=== PATIENT | female | born 1960 | race African-American/Black ===

== ENCOUNTER 2018-11-13 20:59 | Inpatient (IN) | payer MEDICARE, OTHER ==
[~2018-11-13] VITALS: Ht 172.7 cm; Wt 40.8 kg
[~2018-11-13 20:59] MED LIST: NORCO 5-325 TA1 EACH ORAL
[2018-11-13] MEDS ORDERED: Solu-MEDROL 125mg Inj IVP ONE (21:15)
--- NOTE | 2018-11-13 21:22 | Emergency Room Report ---
History of Present Illness General Chief Complaint: Dyspnea/Respdistress Source: Family Member, EMS, Caregiver Present Illness HPI Acute resp distress after eating apple sauce. She has not been eating well for at least a week. She is been having difficulty swallowing. She apparently had no respiratory distress until this episode. The patient is unable to state whether she has pain at this time. The last few days she has complained about increased pain in the areas of metastasis. The pain is been controlled well with tramadol. This is been crushed and the patient apparently has tolerated oral intake marginally well. There is been constipation. The patient was in acute respiratory distress when the paramedics arrived. CPAP in field with albuterol. CPAP and albuterol helped the patient. However she still has respiratory distress. Had PICC for chemo. Now d/c. Chemotherapy was being given for stage IV metastatic breast cancer. Patient is in hospice and DNR DNI The patient is blind. Allergies: Coded Allergies: No Known Allergies (Unverified , 01/28/16) Patient History Limited by: medical condition Past Medical History: see triage record Social History Narrative Patient in hospice Last Menstrual Period: UNK Reviewed Nursing Documentation: PMH: Agreed; PSxH: Agreed Nursing Documentation-PMH Past Medical History: No History, Except For Hx Hypertension: Yes Hx Asthma: Yes Hx Cerebrovascular Accident: Yes - right breast cancer stage 4 Review of Systems All Other Systems: limited Physical Exam Vital Signs Date Time Temp Pulse Resp B/P (MAP) Pulse Ox O2 Delivery O2 Flow Rate FiO2 11/13/18 20:52 140 15 155/77 100 Bi-pap Sp02 EP Interpretation: reviewed, normal General Appearance: severe distress, thin, Chronically Ill Head: normocephalic, atraumatic Eyes: bilateral eye other - Random eye motions ENT: dry mucus membranes Neck: supple, no meningismus Respiratory: respiratory distress, accessory muscle use, rales - Right-sided, wheezing, expiration, other - See skin Cardiovascular #1: normal peripheral pulses, no murmur, tachycardia Cardiovascular #2: 2+ radial (R) Gastrointestinal: soft, decreased bowel sounds Musculoskeletal: no calf tenderness Neurologic: DTRs symmetric, sensory intact, motor weakness - Diffuse, other - occasional monoclonal jerks Psychiatric: depressed affect, anxious Skin: other - Exophytic lesions anterior chest Procedures Critical Care Time Critical Care Time Total Critical Care Time: 120 min bedside evaluation and treatment excludes procedures (EKG). Reason for critical care: Respiratory distress, determination of level of care, hypernatremia, hypokalemia, BiPAP, aspiration pneumonia, hypocalcemia, hypomagnesemia, end-stage breast cancer Possible complications: hypotension, hypertension, MN, shock, arrhythmias, metabolic acidosis, end organ damage, respiratory failure. Interventions: BiPAP, antibiotics, fluid resuscitation, multiple evaluations for respiratory status, electrolyte correction, Course: Hospice patient presents with respiratory distress. BiPAP begun and Solu-Medrol given. Fluid resuscitation begun. Found electrolyte abnormalities. Findings discussed with family -history and CODE STATUS reviewed. Potassium, calcium and magnesium ordered. Improved respiratory status and removal of BiPAP. Apnea monitor alarming. Bedside evaluation with application of CO2 monitor. Discussed findings with family and level of care. Attempting to arrange medical bed but unable due to need for electrolyte replacement. Discussed with admitting physician. CODE STATUS ordered. Consultations: nursing staff, EMS, family, RT, admitting MD Performed by: Dr. Dia Tolerated well condition = critical Medical Decision Making Diagnostic Impression: Primary Impression: Respiratory distress Additional Impressions: Hypokalemia Hypocalcemia Aspiration pneumonia Qualified Codes: J69.0 - Pneumonitis due to inhalation of food and vomit Hypomagnesemia Hypernatremia Metastatic breast cancer Metabolic acidosis ER Course Patient presents with respiratory distress with wheezes. Differential includes aspiration, exacerbation of asthma, acute myocardial infarction, pulmonary embolus amongst others. She is improved with C Pap and albuterol. Evaluation will be with EKG, chest x-ray and labs. The patient is a DO NOT RESUSCITATE. BiPAP will be continued at the moment. EKG sinus tachycardia without injury. Chest x-ray right lower lobe infiltrate. Labs with normal white count, slight anemia. Chemistry remarkable for high sodium, low potassium, extremely low calcium and magnesium. RLL infiltrate. Antibiotics ordered. Patient with hypocalcemia, hypokalemia, hypomagnesemia, Improved respiratory and heart rate - attempt vent mask 22:50. Discussed feeding tubes with family who are against. Taken off of BIPAP. Sats good. Apnea monitor alarm. Resps by sc 12-14. CO2 monitor 41-45. Discussed findings with family. Telemetry beds available. Attempting to arrange for medical bed. This is not possible due to calcium infusion. Improved mentation - talking. Less tachycardic. Family concerned about pain. Morphine ordered along with oral swabs. Laboratory Tests Test 11/13/18 21:05 White Blood Count 6.2 K/UL (4.8-10.8) Red Blood Count 3.95 M/UL (4.20-5.40) L Hemoglobin 12.1 G/DL (12.0-16.0) Hematocrit 38.5 % (37.0-47.0) Mean Corpuscular Volume 98 FL (80-99) Mean Corpuscular Hemoglobin 30.5 PG (27.0-31.0) Mean Corpuscular Hemoglobin Concent 31.3 G/DL (32.0-36.0) L Red Cell Distribution Width 13.3 % (11.6-14.8) Platelet Count 237 K/UL (150-450) Mean Platelet Volume 5.1 FL (6.5-10.1) L Neutrophils (%) (Auto) 77.4 % (45.0-75.0) H Lymphocytes (%) (Auto) 11.0 % (20.0-45.0) L Monocytes (%) (Auto) 10.3 % (1.0-10.0) H Eosinophils (%) (Auto) 0.0 % (0.0-3.0) Basophils (%) (Auto) 1.3 % (0.0-2.0) Prothrombin Time 10.7 SEC (9.30-11.50) Prothrombin Time INR 1.0 (0.9-1.1) PTT 29 SEC (23-33) Sodium Level 149 MMOL/L (136-145) H Potassium Level 2.0 MMOL/L (3.5-5.1) *L Chloride Level 117 MMOL/L (98-107) H Carbon Dioxide Level 19 MMOL/L (21-32) L Anion Gap 12 mmol/L (5-15) Blood Urea Nitrogen 7 mg/dL (7-18) Creatinine 0.5 MG/DL (0.55-1.30) L Estimate Glomerular Filtration Rate > 60 mL/min (>60) Glucose Level 78 MG/DL (74-106) Lactic Acid Level 4.70 mmol/L (0.4-2.0) H Calcium Level < 5.0 MG/DL (8.5-10.1) *L Magnesium Level 0.9 MG/DL (1.8-2.4) *L Total Bilirubin 0.2 MG/DL (0.2-1.0) Aspartate Amino Transferase (AST) 35 U/L (15-37) Alanine Aminotransferase (ALT) 32 U/L (12-78) Alkaline Phosphatase 84 U/L (46-116) Total Creatine Kinase 33 U/L (26-308) Troponin I 0.005 ng/mL (0.000-0.056) Pro-B-Type Natriuretic Peptide 58 pg/mL (0-125) Total Protein 3.3 G/DL (6.4-8.2) L Albumin 1.3 G/DL (3.4-5.0) L Globulin 2.0 g/dL Albumin/Globulin Ratio 0.6 (1.0-2.7) L Microbiology Date/Time Source Procedure Growth Status 11/13/18 21:40 Nasal Nares Influenza Types A,B Antigen (DAYSI) - Final Complete EKG Diagnostic Results Rate: tachycardiac Rhythm: other ST Segments: no acute changes Rhythm Strip Diag. Results EP Interpretation: yes Rhythm: no PVC's, no ectopy, other - Sinus tachycardia Chest X-Ray Diagnostic Results Chest X-Ray Diagnostic Results : Chest X-Ray Ordered: Yes # of Views/Limited/Complete: 1 View Indication: Shortness of Breath EP Interpretation: Yes Interpretation: no effusion, no pneumothorax, other - RLL infiltrate Impression: Other Electronically Signed by: Electronically signed by Isaac Dia MD Last Vital Signs Date Time Temp Pulse Resp B/P (MAP) Pulse Ox O2 Delivery O2 Flow Rate FiO2 11/13/18 22:00 112 21 107/44 100 35 11/13/18 20:55 Facial Status: improved Disposition: ADMITTED INPATIENT Condition: Critical Isaac Dia MD Nov 13, 2018 21:22
--- NOTE | 2018-11-13 21:30 | NUR ---
ED Nurse Note: RECIEVED PT BIBA FROM HOME WITH C/O RESPIRATORY DISTRESS, PT IS HOPSPICE PT WITH STAGE 4 BREAST CANCER, PT RIGHT BREAST WAS REMOVED AND HAS SPREADING OVER ENTIRE CHEST WITH BLISTER LIKE LESIONS AND WOUNDS, SOME OPEN AND DRAINING, PT IS LEGALLY BLIND AND MENTALLY DELAYED, PT SISTER AND MOBILE HEALTH VEHICLE OPERATOR AT BEDSIDE, SISTER IS VERY ANXIOUS, PT IMMEDIATELY PLACED ON CPAP, O2 SAT=97%, PT WITH SOB NOTED, WILL RESUME CARE ORDERED AND CONTINUE TO CLOSELY MONITOR, FAMILY STATES PT IS NOT DNR BUT IS ON HOSPICE, MD AT BEDSIDE SPEAKING WITH FAMILY ABOUT ISSUE.
[2018-11-13 22:00] VITALS: BP 107/44
[2018-11-13 22:01] LABS: BASOPHILS % (AUTO) 1.3 % (0.0-2.0); HEMATOCRIT 38.5 % (37.0-47.0); HEMOGLOBIN 12.1 G/DL (12.0-16.0); MEAN CORPUSCULAR VOLUME 98 FL (80-99); MONOCYTES % (AUTO) 10.3 % (1.0-10.0); NEUTROPHILS % (AUTO) 77.4 % (45.0-75.0); PLATELET COUNT 237 K/UL (150-450); RED BLOOD COUNT 3.95 M/UL (4.20-5.40); RED CELL DISTRIBUTION WIDTH 13.3 % (11.6-14.8); WHITE BLOOD COUNT 6.2 K/UL (4.8-10.8)
[2018-11-13 22:14] LABS: ALANINE AMINOTRANSFERASE 32 U/L (12-78); ALBUMIN 1.3 G/DL (3.4-5.0); ALBUMIN/GLOBULIN RATIO 0.6 (1.0-2.7); ALKALINE PHOSPHATASE 84 U/L (46-116); ANION GAP 12 mmol/L (5-15); ASPARTATE AMINO TRANSFERASE 35 U/L (15-37); BILIRUBIN,TOTAL 0.2 MG/DL (0.2-1.0); BLOOD UREA NITROGEN 7 mg/dL (7-18); CARBON DIOXIDE 19 MMOL/L (21-32); CHLORIDE 117 MMOL/L (98-107); CREATINE KINASE 33 U/L (26-308); CREATININE 0.5 MG/DL (0.55-1.30); SODIUM 149 MMOL/L (136-145)
[2018-11-13 22:16] LABS: CALCIUM < 5.0 MG/DL (8.5-10.1)
[2018-11-13] MEDS ORDERED: Cefepime HCl 1 GM in D5W 55 ML IVPB ONE (22:30)
[2018-11-13] MEDS ORDERED: NS IV ONE (23:30)
[2018-11-13] MEDS ORDERED: CALCIUM GLUCONATE IV ONE (23:30)
[2018-11-14] VITALS (9 sets, daily range): BP systolic 116–133; BP diastolic 50–80
--- NOTE | 2018-11-14 | NUR ---
ED Nurse Note: PT CHANGED FROM CPAP TO VENTI MASK, PT IS TOLERATING WELL, O2 SAT=97%, PT CONTINUING WITH IV MEDS ORDERED, ALL LABS SENT, PT HAS PORT-A-CATH LEFT INNER ARM, FAMILY STATES THEY DO NOT WANT US TO USE, ITS ONLY FOR PT CHEMO, ALSO FAMILY REFUSES CATH FOR URINE SAMPLE, PT GIVEN BEDPAN, UN-SUCCESSFUL WITH COLLECTION, PT REPOSITIONED AND TURNED WITH PILLOWS, IV SITE PATENT, WILL CONTINUE TO CLOSELY MONITOR AND PREPARE FOR HOSPITAL ADMISSION.
--- NOTE | 2018-11-14 02:00 | NUR ---
ED Nurse Note: PT INCONTINENT OF URINE, LINEN CHANGED AND PT GIVEN CHENCHO-CARE, NO SKIN BREAKDOWN NOTED, PT TOLERATING IV ANTIBIOTICS WELL, NO S/S OF ADVERSE REACTION NOTED, PT O2 SAT=99%, PT BECOMING MORE AWAKE AND SPEAKING, PT STATES SHE HAS ABDOMINAL PAIN AND ASKING FOR PAIN MEDS, AWARE, ALSO RECIEVED PT CODE STATUS ORDER. PT FAMILY REMAINS, ALSO INSPECTOR SOLDERING, WILL CONTINUE TO CLOSELY MONITOR, NO BEDS AVAILABLE IN HOSPITAL, PT PLACED ON HOSPITAL BED FOR COMFORT, ALSO CONTINUING WITH PILLOW SUPPORT AND REPOSITIONING.
[2018-11-14] MEDS ORDERED: Morphine Sulfate 2mg/ml Inj(IV/IM USE ONLY) IVP ONE (02:45)
[2018-11-14] MEDS ORDERED: Calcium Chloride 100mg/ml Vial IVP ONE (03:00)
--- NOTE | 2018-11-14 04:00 | NUR ---
ED Nurse Note: PT RECIEVING IV CALCIUM, MED GIVEN LATER THAN ORDERED, HAD TO RETRIEVE FROOM MANAGER FLOOR AFTER ORDER CHANGED BY MD, PT TOLERATED WELL, PT IS SPEAKING MORE, V/S STABLE, NO SOB NOTED,PROGRAM DIRECTOR REMAINS, PT CLEAN AND DRY, WILL CONTINUE TO MONITOR WHILE WAITING FOR HOSPITAL BED FOR ADMISSION.
--- NOTE | 2018-11-14 06:00 | NUR ---
ED Nurse Note: PT IN BED AWAKE AND ALERT, PT ORIENTED TO PLACE AND EVENT, DENEIS CP OR ANY PAIN, ON CARDIAC MONITORING, IV SITE PATENT, PT CLEAN AND DRY, SONAR SUBSYSTEM EQUIPMENT OPERATOR AT BEDSIDE, PT CONTINUING TO Wait FOR ROOM FOR ADMIT.
--- NOTE | 2018-11-14 07:33 | NUR ---
ED Nurse Note: Pt resting on bed with no distress. No urine collected. Pt refused straight catheter and unable to provide urine at this time. MD aware. Caregiver at the bed side.
[2018-11-14 09:02] LABS: ALANINE AMINOTRANSFERASE 35 U/L (12-78); ALBUMIN 1.3 G/DL (3.4-5.0); ALBUMIN/GLOBULIN RATIO 0.6 (1.0-2.7); ALKALINE PHOSPHATASE 81 U/L (46-116); ANION GAP 14 mmol/L (5-15); ASPARTATE AMINO TRANSFERASE 37 U/L (15-37); BILIRUBIN,TOTAL 0.1 MG/DL (0.2-1.0); BLOOD UREA NITROGEN 7 mg/dL (7-18); CARBON DIOXIDE 17 MMOL/L (21-32); CHLORIDE 118 MMOL/L (98-107); CREATININE 0.5 MG/DL (0.55-1.30); SODIUM 149 MMOL/L (136-145)
[2018-11-14 09:07] LABS: CALCIUM < 5.0 MG/DL (8.5-10.1); POTASSIUM 2.1 MMOL/L (3.5-5.1)
--- NOTE | 2018-11-14 09:29 | Diagnostic Imaging Report ---
. Indication: Shortness of breath Technique: One view of the chest Comparison: none Findings: There is a left arm port catheter. Multiple calcified granuloma are seen in the right lung and right pulmonary hilum. The lungs and pleural spaces are otherwise clear. The patient is rotated to the right Impression: Evidence old granulomatous disease No definite acute process
--- NOTE | 2018-11-14 10:30 | NUR ---
ED Nurse Note: Pt resting on her bed with no distress. VSS. Caregiver at the bed side. Blankets given and bed side commode provided.
[2018-11-14] MEDS ORDERED: Morphine Sulfate 2mg/ml Inj(IV/IM USE ONLY) IVP PRN (11:30)
[2018-11-14] MEDS ORDERED: Nitroglycerin Subl 0.4mg tab SL PRN (11:30)
[2018-11-14] MEDS ORDERED: Acetaminophen 650 MG SUPP RECTAL PRN (11:30)
[2018-11-14] MEDS ORDERED: Albuterol/Ipratropium 3ml neb HHN PRN (11:30)
[2018-11-14] MEDS ORDERED: Milk of Magnesia 30ml Ud ORAL PRN (11:30)
[2018-11-14] MEDS ORDERED: Miralax 17gm pkt ORAL PRN (11:30)
--- NOTE | 2018-11-14 11:47 | History & Physical ---
History and Physical History & Physicial Allan Sidhu MD Nov 14, 2018 11:47
--- NOTE | 2018-11-14 12:02 | NUR ---
ED Nurse Note: Lunch tray provided to the pt. Family members at the bed side.
--- NOTE | 2018-11-14 13:44 | Consultation ---
History of Present Illness General Chief Complaint: Dyspnea/Respdistress Present Illness Allergies: Coded Allergies: No Known Allergies (Unverified , 01/28/16) Medication History Scheduled PRN Hydrocodone Bit/Acetaminophen 5-325* (Termo 5-325*), 1 TAB ORAL Q6H PRN for For Pain Patient History Healthcare decision maker Resuscitation status Advanced Directive on File Physical Exam Last 24 Hour Vital Signs Date Time Temp Pulse Resp B/P (MAP) Pulse Ox O2 Delivery O2 Flow Rate FiO2 11/14/18 12:04 98.5 79 16 130/74 98 Venturi Mask 15.0 11/14/18 10:00 98.9 86 17 128/60 100 Venturi Mask 15.0 11/14/18 08:00 98.9 96 15 133/50 100 Venturi Mask 15.0 11/14/18 06:00 99.0 101 12 127/59 100 Simple Mask 15.0 35 11/14/18 05:57 Simple Mask 15.0 11/14/18 04:00 99.0 95 12 119/58 100 Bi-pap 35 11/14/18 02:00 99.0 101 12 116/58 100 Bi-pap 35 11/14/18 00:00 99.0 106 12 118/63 100 Bi-pap 35 11/13/18 22:00 112 21 107/44 100 35 11/13/18 21:15 122 21 35 11/13/18 20:55 122 21 100 Facial 35 11/13/18 20:52 140 15 155/77 100 Bi-pap Laboratory Tests Test 11/13/18 21:05 11/14/18 08:05 White Blood Count 6.2 K/UL (4.8-10.8) Red Blood Count 3.95 M/UL (4.20-5.40) L Hemoglobin 12.1 G/DL (12.0-16.0) Hematocrit 38.5 % (37.0-47.0) Mean Corpuscular Volume 98 FL (80-99) Mean Corpuscular Hemoglobin 30.5 PG (27.0-31.0) Mean Corpuscular Hemoglobin Concent 31.3 G/DL (32.0-36.0) L Red Cell Distribution Width 13.3 % (11.6-14.8) Platelet Count 237 K/UL (150-450) Mean Platelet Volume 5.1 FL (6.5-10.1) L Neutrophils (%) (Auto) 77.4 % (45.0-75.0) H Lymphocytes (%) (Auto) 11.0 % (20.0-45.0) L Monocytes (%) (Auto) 10.3 % (1.0-10.0) H Eosinophils (%) (Auto) 0.0 % (0.0-3.0) Basophils (%) (Auto) 1.3 % (0.0-2.0) Prothrombin Time 10.7 SEC (9.30-11.50) Prothromb Time International Ratio 1.0 (0.9-1.1) Activated Partial Thromboplast Time 29 SEC (23-33) Sodium Level 149 MMOL/L (136-145) H 149 MMOL/L (136-145) H Potassium Level 2.0 MMOL/L (3.5-5.1) *L 2.1 MMOL/L (3.5-5.1) *L Chloride Level 117 MMOL/L (98-107) H 118 MMOL/L (98-107) H Carbon Dioxide Level 19 MMOL/L (21-32) L 17 MMOL/L (21-32) L Anion Gap 12 mmol/L (5-15) 14 mmol/L (5-15) Blood Urea Nitrogen 7 mg/dL (7-18) 7 mg/dL (7-18) Creatinine 0.5 MG/DL (0.55-1.30) L 0.5 MG/DL (0.55-1.30) L Estimat Glomerular Filtration Rate > 60 mL/min (>60) > 60 mL/min (>60) Glucose Level 78 MG/DL (74-106) 74 MG/DL (74-106) Lactic Acid Level 4.70 mmol/L (0.4-2.0) H Calcium Level < 5.0 MG/DL (8.5-10.1) *L < 5.0 MG/DL (8.5-10.1) *L Magnesium Level 0.9 MG/DL (1.8-2.4) *L Total Bilirubin 0.2 MG/DL (0.2-1.0) 0.1 MG/DL (0.2-1.0) L Aspartate Amino Transf (AST/SGOT) 35 U/L (15-37) 37 U/L (15-37) Alanine Aminotransferase (ALT/SGPT) 32 U/L (12-78) 35 U/L (12-78) Alkaline Phosphatase 84 U/L (46-116) 81 U/L (46-116) Total Creatine Kinase 33 U/L (26-308) Troponin I 0.005 ng/mL (0.000-0.056) Pro-B-Type Natriuretic Peptide 58 pg/mL (0-125) Total Protein 3.3 G/DL (6.4-8.2) L 3.3 G/DL (6.4-8.2) L Albumin 1.3 G/DL (3.4-5.0) L 1.3 G/DL (3.4-5.0) L Globulin 2.0 g/dL 2.0 g/dL Albumin/Globulin Ratio 0.6 (1.0-2.7) L 0.6 (1.0-2.7) L Microbiology Date/Time Source Procedure Growth Status 11/13/18 21:40 Nasal Nares Influenza Types A,B Antigen (DAYSI) - Final Complete Height (Feet): 5 Height (Inches): 8.00 Weight (Pounds): 90 Medications Current Medications Medications (Trade) Dose Ordered Sig/Mark Route PRN Reason Start Time Stop Time Status Last Admin Dose Admin Acetaminophen (Tylenol) 650 mg Q4H PRN ORAL Mild Pain (Pain Scale 1-3) 11/14/18 11:30 12/14/18 11:29 Acetaminophen (Tylenol) 650 mg Q4H PRN ORAL fever 11/14/18 11:30 12/14/18 11:29 Acetaminophen (Tylenol) 650 mg Q4H PRN RECTAL Mild Pain (Pain Scale 1-3) 11/14/18 11:30 12/14/18 11:29 Acetaminophen/ Hydrocodone Bitart (Termo 5/325) 1 tab Q6H PRN ORAL For Pain 11/14/18 11:30 11/21/18 11:29 Albuterol/ Ipratropium (Albuterol/ Ipratropium) 3 ml Q4H PRN HHN Shortness of Breath 11/14/18 11:30 11/19/18 11:29 Bisacodyl (Dulcolax) 10 mg HSPRN PRN RECTAL Constipation 11/14/18 11:30 12/14/18 11:29 Dextrose (Dextrose 50%) 25 ml Q30M PRN IV Hypoglycemia 11/14/18 11:30 12/14/18 11:29 Dextrose (Dextrose 50%) 50 ml Q30M PRN IV Hypoglycemia 11/14/18 11:30 12/14/18 11:29 Docusate Sodium (Colace) 100 mg EVERY 12 HOURS ORAL 11/14/18 21:00 12/14/18 20:59 Levofloxacin 100 ml @ 100 mls/hr DAILY IVPB 11/15/18 09:00 11/22/18 08:59 UNV Magnesium Hydroxide (Mom) 30 ml HSPRN PRN ORAL Constipation 11/14/18 11:30 12/14/18 11:29 Magnesium Sulfate 2000 mg/Dextrose 104 ml @ 50 mls/hr ONCE ONCE IV 11/14/18 14:00 11/14/18 16:04 Metronidazole 100 ml @ 100 mls/hr Q8HR IVPB 11/14/18 14:00 11/21/18 13:59 UNV Morphine Sulfate (Morphine Sulfate) 2 mg Q4H PRN IVP Moderate Pain (Pain Scale 4-6) 11/14/18 11:30 11/21/18 11:29 Morphine Sulfate (Morphine Sulfate) 4 mg Q4H PRN IVP Severe Pain (Pain Scale 7-10) 11/14/18 11:30 11/21/18 11:29 Nitroglycerin (Ntg) 0.4 mg Q5M X 3 DOSES PRN SL Prn Chest Pain 11/14/18 11:30 12/14/18 11:29 Ondansetron HCl (Zofran) 4 mg Q6H PRN IVP Nausea & Vomiting 11/14/18 11:30 12/14/18 11:29 Polyethylene Glycol (Miralax) 17 gm HSPRN PRN ORAL Constipation 11/14/18 11:30 12/14/18 11:29 Potassium Chloride 100 ml @ 100 mls/hr Q1H IV 11/14/18 13:00 11/14/18 16:59 11/14/18 13:32 Sodium 1,000 ml @ 75 mls/hr [id number] IV 11/14/18 12:27 12/14/18 12:26 Sodium Chloride 1,000 ml @ 300 mls/hr Q3H20M IV 11/13/18 21:15 12/13/18 21:14 11/14/18 07:39 Piyush Briscoe MD Nov 14, 2018 13:44
[2018-11-14] MEDS ORDERED: Magnesium Sulfate 2,000 MG in D5W 100 ML IV ONE (14:00)
--- NOTE | 2018-11-14 14:08 | NUR ---
ED Nurse Note: Report given to Chrystal FAULKNER of Med Surg unit. ER Charge nurse okay to bring the pt up without the admission packet.
--- NOTE | 2018-11-14 14:20 | NUR ---
NURSE NOTES: Received patient in bed, resting and alert to name. Family at bedside. IV intact. Closed lesions noted on chest area. Skin in back intact. Bed in lowest position, call light within reach. Will continue to monitor.
--- NOTE | 2018-11-14 15:02 | Cardiology Report ---
APPROVED REPORT EKG Measurement Heart [id number] Sinus tachycardia Possible Left atrial enlargement Right axis deviation Pulmonary disease pattern Abnormal ECG
--- NOTE | 2018-11-14 15:30 | NUR ---
NURSE NOTES: Took patients brother Marcel to speak with outpatient case manager, Kina, regarding options for hospice/IV treatment at home.
[2018-11-14] MEDS: Morphine Sulfate 4mg/ml Inj (IV USE ONLY) IVP PRN (16:14)
--- NOTE | 2018-11-14 16:41 | NUR ---
NURSE NOTES: Last 10meq KCl bag scheduled not given due to order stating 30meQ total; per pharmacist Kieran, non-admin because order entered wrong as 40mEq (4 bags scheduled) however, total dose is supposed to be 30mEq
[2018-11-14] MEDS: 1/2NS w/KCl 20mEq 1000ml 1,000 ML IV SCH (17:39)
--- NOTE | 2018-11-14 18:15 | History and Physical Report ---
DATE OF ADMISSION: 11/13/2018 CHIEF COMPLAINT: Difficulty swallowing and acute respiratory distress. HISTORY OF PRESENT ILLNESS: This is a 58-year-old very unfortunate female with past medical history significant for advanced right breast cancer stage IV, history of hypertension, borderline diabetes, who was presented to the hospital from home after she was noted to have severe shortness of breath. While she was eating applesauce, she suddenly started having respiratory distress, difficulty swallowing, and apparently had no respiratory distress and passed to this episode, unable to state whether she has any pain or there was difficulty chewing the applesauce. She has advanced metastatic cancer and the pain has been controlled with tramadol. Medication has been crushed and taken orally. She has been having history of constipation in the past. Shortly after initial evaluation in the emergency, the patient was admitted to the hospital with acute respiratory failure, was on a CPAP on the field and albuterol, and CPAP really helped her and her respiratory status improved and the patient was admitted to the hospital with acute respiratory failure, distress with severe dehydration, hypokalemia and hypomagnesemia, and possible aspiration pneumonia. PAST MEDICAL HISTORY AND PAST SURGICAL HISTORY: Significant for advanced right breast cancer, status post chemotherapy and radiation therapy, presently on hospice and code status is DNR/DNI. The patient has history of vision deficit with blindness, hypertension, borderline diabetes, and mitral valve prolapse. MEDICATIONS AT HOME: Please refer to medication reconciliation. ALLERGIES: No known drug allergies. SOCIAL HISTORY: Denies any smoking, alcohol, or drugs. FAMILY HISTORY: Noncontributory. REVIEW OF SYSTEMS: Mostly as above. Decreased p.o. intake, severe weakness, and fatigue. No cough. No loss of consciousness. No double vision. No fall or head trauma. PHYSICAL EXAMINATION: VITAL SIGNS: On admission, temperature is 99, pulse of 101, respiration 12, blood pressure 116/58. GENERAL: The patient is awake, responsive, in no acute distress. HEAD AND NECK: Pupils equal and reactive to light. Anicteric. NECK: Supple. No JVD. LUNGS: Decreased air in the bases. Occasional crackles. HEART: S1, S2. Distant heart sounds. CHEST WALL: A keloid on the chest wall was noted mostly over the right side of chest wall and midline. ABDOMEN: Soft, mildly distended. No rebound tenderness. No fluid shift. EXTREMITIES: No cyanosis, clubbing, or edema. NEUROLOGIC: Cranial nerves II through XII are grossly intact. The patient moving all extremities spontaneously. Gait was not assessed due to the patient's status. LABORATORY DATA: On admission, sodium 149, potassium 2.0, chloride 117, bicarbonate 19, BUN 7, creatinine 0.5, glucose 78, calcium is less than 5.0. Lactic acid 4.70. AST of 35, ALT of 32. Troponin 0.05. PT of 10, INR 1.0, and PTT of 29. WBC of 6.2, hemoglobin 12, hematocrit 38, platelet is 237,000. Chest x-ray was done in the ER, evidence of the old granulomatous disease, no evidence of acute process. ASSESSMENT: 1. Acute respiratory distress/failure, most likely secondary to possible aspiration pneumonia. 2. Acute kidney injury with dehydration. 3. Advanced right breast cancer with metastasis. 4. Hypertension. 5. Hypomagnesemia. 6. Hypokalemia. 7. Severe protein-calorie malnutrition. PLAN: After further discussion with the family member, the patient's code status is DNR/DNI, comfort care. The patient would go back to the hospice at home in a day or two. We started broad-spectrum antibiotic with Levaquin and Flagyl, IV hydration with D5 half-NS plus potassium. We will try to supplement magnesium as well as potassium. Discussed the case with Dr. Briscoe of Pulmonary/Critical Care and the patient will be discharged home on the hospice. Allan Sidhu M.D. DR: Maya JOB#: [id number] CC:
[2018-11-14] MEDS ORDERED: Calcium Gluconate 1gm/10ml vial IVP SCH (19:00)
--- NOTE | 2018-11-14 19:45 | NUR ---
HAND-OFF: Report given to LUCIE Woodson. Endorsed IV access. Attempted along with second RN, explained to family IV insertion will be done in next shift. Patient in stable condition.
--- NOTE | 2018-11-14 20:58 | NUR ---
NURSE NOTES: Received patient in bed, resting and alert to name. Family at bedside. New IV was inserted left hand 22 gauge. Closed lesions noted on chest area. no complaints of pain at this time. Patient on venturi mask. Bed in lowest position, call light within reach, bed alarm on. Will continue to monitor.
[2018-11-14] MEDS: Docusate 100mg cap ORAL SCH (21:57)
[2018-11-15] VITALS: BP 127/66
[2018-11-15] MEDS: 1/2NS w/KCl 20mEq 1000ml 1,000 ML IV SCH (01:33)
[2018-11-15 04:59] VITALS: BP 125/70
--- NOTE | 2018-11-15 06:00 | NUR ---
NURSE NOTES: Suctioned patient orally, also called rt and rt came to suction patient as well due to congestion. Patient tolerated. Will continue to monitor.
--- NOTE | 2018-11-15 07:29 | NUR ---
HAND-OFF: Report given to renetta lara rn.
[2018-11-15 08:00] VITALS: BP 162/100
--- NOTE | 2018-11-15 08:34 | NUR ---
NURSE NOTES: received notification from Ulises, from [facility]: pt is Blood culture Gram Cocci in clusters (+) 4/4 bottles. Ulises said he'll notify provider, as no ID on the case as of yet.
[2018-11-15] MEDS: Docusate 100mg cap ORAL SCH (10:03)
--- NOTE | 2018-11-15 10:58 | Pulmonology Progress Note ---
Assessment/Plan Problems: (1) Hypomagnesemia (2) Aspiration pneumonia (3) Metastatic breast cancer (4) Hypocalcemia (5) Hypokalemia Assessment/Plan aspiration precaution respiratory treatment K and mg supplement Aldactone to increase K pain management swallow evaluation. Subjective ROS Limited/Unobtainable: No Constitutional: Reports: no symptoms HEENT: Repors: no symptoms Allergies: Coded Allergies: No Known Allergies (Unverified , 01/28/16) Objective Last 24 Hour Vital Signs Date Time Temp Pulse Resp B/P (MAP) Pulse Ox O2 Delivery O2 Flow Rate FiO2 11/15/18 08:00 98.6 113 19 162/100 (120) 100 11/15/18 04:59 97.0 106 19 125/70 (88) 100 11/15/18 00:00 98.0 112 18 127/66 (86) 100 11/14/18 22:52 Venturi Mask 10.0 11/14/18 20:00 99.7 122 18 133/68 (89) 98 11/14/18 14:24 99.0 88 20 135/76 97 Venturi Mask 15.0 11/14/18 13:42 82 18 120/80 99 Venturi Mask 15.0 11/14/18 12:04 98.5 79 16 130/74 98 Venturi Mask 15.0 Intake and Output 11/14/18 11/15/18 19:00 07:00 Intake Total 200 ml 650 ml Output Total 3 ml Balance 200 ml 647 ml Intake Oral 200 ml IV Total 650 ml Output Urine Total 3 ml Objective General Appearance: cachectic Lines, tubes and drains: peripheral HEENT: normocephalic, atraumatic Neck: non-tender Respiratory/Chest: chest wall non-tender, normal breath sounds Breasts: no masses Cardiovascular/Chest: normal peripheral pulses Genitourinary/Rectal: normal genital exam Extremities: normal range of motion Microbiology Date/Time Source Procedure Growth Status 11/13/18 21:20 Blood Blood Culture - Preliminary Resulted 11/13/18 21:05 Blood Blood Culture - Preliminary Resulted 11/13/18 21:40 Nasal Nares Influenza Types A,B Antigen (DAYSI) - Final Complete Current Medications Medications (Trade) Dose Ordered Sig/Mark Route PRN Reason Start Time Stop Time Status Last Admin Dose Admin Acetaminophen (Tylenol) 650 mg Q4H PRN ORAL Mild Pain (Pain Scale 1-3) 11/14/18 11:30 12/14/18 11:29 Acetaminophen (Tylenol) 650 mg Q4H PRN ORAL fever 11/14/18 11:30 12/14/18 11:29 Acetaminophen (Tylenol) 650 mg Q4H PRN RECTAL Mild Pain (Pain Scale 1-3) 11/14/18 11:30 12/14/18 11:29 Acetaminophen/ Hydrocodone Bitart ([place] 5/325) 1 tab Q6H PRN ORAL For Pain 11/14/18 11:30 11/21/18 11:29 Albuterol/ Ipratropium (Albuterol/ Ipratropium) 3 ml Q4H PRN HHN Shortness of Breath 11/14/18 11:30 11/19/18 11:29 Bisacodyl (Dulcolax) 10 mg HSPRN PRN RECTAL Constipation 11/14/18 11:30 12/14/18 11:29 Dextrose (Dextrose 50%) 25 ml Q30M PRN IV Hypoglycemia 11/14/18 11:30 12/14/18 11:29 Dextrose (Dextrose 50%) 50 ml Q30M PRN IV Hypoglycemia 11/14/18 11:30 12/14/18 11:29 Docusate Sodium (Colace) 100 mg EVERY 12 HOURS ORAL 11/14/18 21:00 12/14/18 20:59 11/15/18 10:03 Levofloxacin 100 ml @ 100 mls/hr Q24H IVPB 11/14/18 21:00 11/21/18 20:59 11/14/18 22:05 Magnesium Hydroxide (Mom) 30 ml HSPRN PRN ORAL Constipation 11/14/18 11:30 12/14/18 11:29 Metronidazole 100 ml @ 100 mls/hr Q8HR IVPB 11/14/18 22:00 11/21/18 21:59 11/15/18 06:20 Morphine Sulfate (Morphine Sulfate) 2 mg Q4H PRN IVP Moderate Pain (Pain Scale 4-6) 11/14/18 11:30 11/21/18 11:29 Morphine Sulfate (Morphine Sulfate) 4 mg Q4H PRN IVP Severe Pain (Pain Scale 7-10) 11/14/18 11:30 11/21/18 11:29 11/14/18 16:14 Nitroglycerin (Ntg) 0.4 mg Q5M X 3 DOSES PRN SL Prn Chest Pain 11/14/18 11:30 12/14/18 11:29 Ondansetron HCl (Zofran) 4 mg Q6H PRN IVP Nausea & Vomiting 11/14/18 11:30 12/14/18 11:29 Polyethylene Glycol (Miralax) 17 gm HSPRN PRN ORAL Constipation 11/14/18 11:30 12/14/18 11:29 Sodium 1,000 ml @ 75 mls/hr [id number] IV 11/14/18 12:27 12/14/18 12:26 11/14/18 17:39 Piyush Briscoe MD Nov 15, 2018 10:58
[2018-11-15 12:00] VITALS: BP 111/66
[2018-11-15] MEDS ORDERED: POTASSIUM CHLORIDE IV SCH (12:27)
[2018-11-15] MEDS ORDERED: KCL IV SCH (12:27)
[2018-11-15] MEDS ORDERED: [UNRECOGNIZED DRUG - OTHER] IV SCH (12:27)
[2018-11-15] MEDS: Norco 5mg/325mg tab ORAL PRN (14:37)
[2018-11-15 16:00] VITALS: BP 132/73
[2018-11-15 16:34] LABS: BASOPHILS % (AUTO) 0.9 % (0.0-2.0); HEMATOCRIT 30.5 % (37.0-47.0); HEMOGLOBIN 9.9 G/DL (12.0-16.0); LYMPHOCYTES % (AUTO) 5.3 % (20.0-45.0); MEAN CORPUSCULAR VOLUME 97 FL (80-99); MONOCYTES % (AUTO) 9.1 % (1.0-10.0); NEUTROPHILS % (AUTO) 84.7 % (45.0-75.0); PLATELET COUNT 208 K/UL (150-450); RED BLOOD COUNT 3.15 M/UL (4.20-5.40); RED CELL DISTRIBUTION WIDTH 13.2 % (11.6-14.8); WHITE BLOOD COUNT 7.6 K/UL (4.8-10.8)
--- NOTE | 2018-11-15 19:22 | Internal Med Progress Note ---
Subjective Date of Service: Nov 15, 2018 Physician Name MyersJose Attending Physician Allan Sidhu MD Current Medications Medications (Trade) Dose Ordered Sig/Mark Route PRN Reason Start Time Stop Time Status Last Admin Dose Admin Acetaminophen (Tylenol) 650 mg Q4H PRN ORAL Mild Pain (Pain Scale 1-3) 11/14/18 11:30 12/14/18 11:29 Acetaminophen (Tylenol) 650 mg Q4H PRN ORAL fever 11/14/18 11:30 12/14/18 11:29 Acetaminophen (Tylenol) 650 mg Q4H PRN RECTAL Mild Pain (Pain Scale 1-3) 11/14/18 11:30 12/14/18 11:29 Acetaminophen/ Hydrocodone Bitart ([place] 5/325) 1 tab Q6H PRN ORAL For Pain 11/14/18 11:30 11/21/18 11:29 11/15/18 14:37 Albuterol/ Ipratropium (Albuterol/ Ipratropium) 3 ml Q4H PRN HHN Shortness of Breath 11/14/18 11:30 11/19/18 11:29 Bisacodyl (Dulcolax) 10 mg HSPRN PRN RECTAL Constipation 11/14/18 11:30 12/14/18 11:29 Dextrose (Dextrose 50%) 25 ml Q30M PRN IV Hypoglycemia 11/14/18 11:30 12/14/18 11:29 Dextrose (Dextrose 50%) 50 ml Q30M PRN IV Hypoglycemia 11/14/18 11:30 12/14/18 11:29 Levofloxacin 100 ml @ 100 mls/hr Q24H IVPB 11/14/18 21:00 11/21/18 20:59 11/14/18 22:05 Metronidazole 100 ml @ 100 mls/hr Q8HR IVPB 11/14/18 22:00 11/21/18 21:59 11/15/18 13:49 Morphine Sulfate (Morphine Sulfate) 4 mg Q4H PRN IVP Severe Pain (Pain Scale 7-10) 11/14/18 11:30 11/21/18 11:29 11/14/18 16:14 Nitroglycerin (Ntg) 0.4 mg Q5M X 3 DOSES PRN SL Prn Chest Pain 11/14/18 11:30 12/14/18 11:29 Ondansetron HCl (Zofran) 4 mg Q6H PRN IVP Nausea & Vomiting 11/14/18 11:30 12/14/18 11:29 Polyethylene Glycol (Miralax) 17 gm HSPRN PRN ORAL Constipation 11/14/18 11:30 12/14/18 11:29 Potassium Chloride 40 meq/ Sodium Chloride 1,020 ml @ 75 mls/hr [id number] IV 11/15/18 12:00 12/15/18 11:59 11/15/18 13:49 Spironolactone (Aldactone) 25 mg DAILY ORAL 11/16/18 09:00 12/16/18 08:59 Allergies: Coded Allergies: No Known Allergies (Unverified , 01/28/16) Subjective 58 YO F admitted with shortness of breath. Now pneumonia. Cover for Int Suresh-dr Sidhu Objective Last Vital Signs Date Time Temp Pulse Resp B/P (MAP) Pulse Ox O2 Delivery O2 Flow Rate FiO2 11/15/18 16:00 98.1 103 18 132/73 (92) 100 11/15/18 12:00 Venturi Mask 10.0 11/14/18 06:00 35 Laboratory Tests Test 11/15/18 15:20 White Blood Count 7.6 K/UL (4.8-10.8) Red Blood Count 3.15 M/UL (4.20-5.40) L Hemoglobin 9.9 G/DL (12.0-16.0) L Hematocrit 30.5 % (37.0-47.0) L Mean Corpuscular Volume 97 FL (80-99) Mean Corpuscular Hemoglobin 31.5 PG (27.0-31.0) H Mean Corpuscular Hemoglobin Concent 32.6 G/DL (32.0-36.0) Red Cell Distribution Width 13.2 % (11.6-14.8) Platelet Count 208 K/UL (150-450) Mean Platelet Volume 5.0 FL (6.5-10.1) L Neutrophils (%) (Auto) 84.7 % (45.0-75.0) H Lymphocytes (%) (Auto) 5.3 % (20.0-45.0) L Monocytes (%) (Auto) 9.1 % (1.0-10.0) Eosinophils (%) (Auto) 0.0 % (0.0-3.0) Basophils (%) (Auto) 0.9 % (0.0-2.0) Erythrocyte Sedimentation Rate 68 MM/HR (0-30) H Sodium Level Pending Potassium Level Pending Chloride Level Pending Carbon Dioxide Level Pending Blood Urea Nitrogen Pending Creatinine Pending Estimat Glomerular Filtration Rate Pending Glucose Level Pending Calcium Level Pending Phosphorus Level Pending Magnesium Level Pending Total Bilirubin Pending Aspartate Amino Transf (AST/SGOT) Pending Alanine Aminotransferase (ALT/SGPT) Pending Alkaline Phosphatase Pending C-Reactive Protein, Quantitative 8.4 mg/dL (0.00-0.90) H Total Protein Pending Albumin Pending Globulin Pending Microbiology Date/Time Source Procedure Growth Status 11/13/18 21:20 Blood Blood Culture - Preliminary Resulted 11/13/18 21:05 Blood Blood Culture - Preliminary Resulted 11/13/18 21:40 Nasal Nares Influenza Types A,B Antigen (DAYSI) - Final Complete Intake and Output 11/14/18 11/15/18 19:00 07:00 Intake Total 200 ml 650 ml Output Total 3 ml Balance 200 ml 647 ml Intake Oral 200 ml IV Total 650 ml Output Urine Total 3 ml Objective PHYSICAL EXAMINATION: GENERAL: The patient is awake, responsive, in no acute distress. HEAD AND NECK: Pupils equal and reactive to light. Anicteric. NECK: Supple. No JVD. LUNGS: Decreased air in the bases. Occasional crackles. HEART: S1, S2. Distant heart sounds. CHEST WALL: A keloid on the chest wall was noted mostly over the right side of chest wall and midline. ABDOMEN: Soft, mildly distended. No rebound tenderness. No fluid shift. EXTREMITIES: No cyanosis, clubbing, or edema. NEUROLOGIC: Cranial nerves II through XII are grossly intact. The patient moving all extremities spontaneously. Gait was not assessed due to the patient's status. Assessment/Plan Assessment/Plan ASSESSMENT: 1. Acute respiratory distress/failure, most likely secondary to possible aspiration pneumonia. 2. Acute kidney injury with dehydration. 3. Advanced right breast cancer with metastasis. 4. Hypertension. 5. Hypomagnesemia. 6. Hypokalemia. 7. Severe protein-calorie malnutrition. PLAN: After further discussion with the family member, the patient's code status is DNR/DNI, comfort care. The patient would go back to the hospice at home in a day or two. We started broad-spectrum antibiotic with Levaquin and Flagyl, IV hydration with D5 half-NS plus potassium. We will try to supplement magnesium as well as potassium. Discussed the case with Dr. Briscoe of Pulmonary/Critical Care and the patient will be discharged home on the hospice. Jose Myers MD Nov 15, 2018 19:21
--- NOTE | 2018-11-15 19:25 | NUR ---
HAND-OFF: Report given to LUCIE Velarde.
--- NOTE | 2018-11-15 19:50 | NUR ---
NURSE NOTES: Received patient in bed, receiving O2 via venturi mask. No SOB, no acute distress. Patient in sleep. L hand IV intact, patent running IVF 75cc/hr. Bed in lowest position, locked, alarms on. Call light in reach.
[2018-11-15 20:00] VITALS: BP 133/80
[2018-11-15] MEDS: Morphine Sulfate 4mg/ml Inj (IV USE ONLY) IVP PRN (20:53)
[2018-11-15 21:00] LABS: ALANINE AMINOTRANSFERASE 49 U/L (12-78); ALBUMIN 2.1 G/DL (3.4-5.0); ALBUMIN/GLOBULIN RATIO 0.6 (1.0-2.7); ALKALINE PHOSPHATASE 145 U/L (46-116); ANION GAP 7 mmol/L (5-15); ASPARTATE AMINO TRANSFERASE 65 U/L (15-37); BILIRUBIN,TOTAL 0.3 MG/DL (0.2-1.0); BLOOD UREA NITROGEN 10 mg/dL (7-18); CALCIUM 8.5 MG/DL (8.5-10.1); CARBON DIOXIDE 28 MMOL/L (21-32); CHLORIDE 106 MMOL/L (98-107); CREATININE 0.7 MG/DL (0.55-1.30); PHOSPHORUS 2.4 MG/DL (2.5-4.9); POTASSIUM 4.7 MMOL/L (3.5-5.1); SODIUM 141 MMOL/L (136-145)
[2018-11-16] VITALS: BP 134/79
[2018-11-16 04:00] VITALS: BP 126/64
--- NOTE | 2018-11-16 07:25 | NUR ---
HAND-OFF: Report given to Tawnya FAULKNER.
[2018-11-16 08:00] VITALS: BP 126/74
[2018-11-16] MEDS ORDERED: Spironolactone 25mg tab ORAL SCH (09:00)
--- NOTE | 2018-11-16 11:23 | NUR ---
RD ASSESSMENT & RECOMMENDATIONS SEE CARE ACTIVITY FOR COMPLETE ASSESSMENT DAILY ESTIMATED NEEDS: Needs based on Cancer, wt loss 54.5 kg 30-40 kcals/kg 6515-4737 total kcals 1-2 g protein/kg 55-109 g total protein 25-30 mL/kg 5264-5119 total fluid mLs NUTRITION DIAGNOSIS: 1) Increased kcal and protein needs r/t cancer and weight loss as evidenced by pt w/ stage 4 breast cancer, presents w/ severe wt loss of up to 30#, 21% unfavorable change, current BMI underweight per guidelines. 2) Altered nutrition related lab values r/t clinical status and lyte imbalance as evidenced by pt adm w/ elev Na, low K, low Ca, low phos, low Mg, now on repletion. CURRENT DIET: regular soft PO DIET RECOMMENDATIONS: REGULAR DIET/ TEXTURE TOLERATED ADDITIONAL RECOMMENDATIONS: 1) Add ENSURE BID IN B/W MEALS INCREASE TO TID WITH <50% PO INTAKE 2) CALIBRATED bed scale wts 3) Lytes daily, replete as needed 4) ELVER darbyal
--- NOTE | 2018-11-16 11:30 | NUR ---
NURSE NOTES: patient's sister [place] spoken to nurse over the phone, asked her to be on diaper, saying that her sister is being kept wet 24 hours. Nurse told sister that this hospital is diaper free for prevention of skin chemical burn, and that her sister is being cleaned by staff and her own caregiver whenever needed. Moreover, sister complained that sister didn't have the swallow evaluation done and she wasn't advised that it can't be done today, but family and patient wants pt to be discharged tomorrow. Nurse was trying to converse to sister when she hung up the phone.
[2018-11-16 12:00] VITALS: BP 137/68
[2018-11-16] MEDS ORDERED: Miralax 17gm pkt ORAL PRN (12:30)
--- NOTE | 2018-11-16 12:30 | NUR ---
NURSE NOTES: usamaeint's sister Kathy is visiting patient, and requested nurse to know all patient's lab results from past day, as it financial services counselor wasn't able to collect blood so far. Nurse told sister one by one the abnormal labs, and the normal range of those labs, and sister urged nurse to contact PCP and ask for iron to be given, as pt has Hg/hct below normal range. Nurse told there are several reasons a pt can develop anemia, and as pt doesn't have iron level. o sister requested and insisted 2x for nurse to contact PCP and request that iron level to be added to lab draw. Nurse contacted and explained the situation, but didn't contact nurse back. Sister was informed.
--- NOTE | 2018-11-16 13:10 | Pulmonology Progress Note ---
Assessment/Plan Problems: (1) Hypomagnesemia (2) Aspiration pneumonia (3) Metastatic breast cancer (4) Hypocalcemia (5) Hypokalemia Assessment/Plan d/w sister at the bed site aspiration precaution respiratory treatment K and mg supplement Aldactone to increase K pain management swallow evaluation. K better, d/c aldactone Subjective ROS Limited/Unobtainable: No Constitutional: Reports: no symptoms HEENT: Repors: no symptoms Respiratory: Reports: no symptoms Allergies: Coded Allergies: No Known Allergies (Unverified , 01/28/16) Objective Last 24 Hour Vital Signs Date Time Temp Pulse Resp B/P (MAP) Pulse Ox O2 Delivery O2 Flow Rate FiO2 11/16/18 09:00 Venturi Mask 4.0 Venturi Mask 11/16/18 08:00 98.1 113 20 126/74 (91) 98 11/16/18 07:49 Venturi Mask 4.0 30 11/16/18 07:49 97 Venturi Mask 4.0 30 11/16/18 07:49 108 19 Venturi Mask 4.0 30 11/16/18 04:00 98.3 101 18 126/64 (84) 100 11/16/18 00:00 98.0 98 18 134/79 (97) 98 11/15/18 21:00 Venturi Mask 10.0 11/15/18 20:00 97.5 96 16 133/80 (97) 100 11/15/18 16:00 98.1 103 18 132/73 (92) 100 11/15/18 15:07 98.1 Intake and Output 11/15/18 11/16/18 18:59 06:59 Intake Total 1280 ml 800 ml Balance 1280 ml 800 ml Intake Oral 480 ml 0 ml IV Total 800 ml 800 ml # Voids 2 1 Objective General Appearance: cachectic Lines, tubes and drains: peripheral HEENT: normocephalic, atraumatic Neck: non-tender Respiratory/Chest: chest wall non-tender, normal breath sounds Breasts: no masses Cardiovascular/Chest: normal peripheral pulses Genitourinary/Rectal: normal genital exam Extremities: normal range of motion Microbiology Date/Time Source Procedure Growth Status 11/13/18 21:20 Blood Blood Culture - Preliminary Staphylococcus Sp Coag Neg Resulted 11/13/18 21:05 Blood Blood Culture - Preliminary Staphylococcus Sp Coag Neg Resulted 11/13/18 21:40 Nasal Nares Influenza Types A,B Antigen (DAYSI) - Final Complete Laboratory Tests 11/15/18 15:20: White Blood Count 7.6, Red Blood Count 3.15L, Hemoglobin 9.9L, Hematocrit 30.5L , Mean Corpuscular Volume 97, Mean Corpuscular Hemoglobin 31.5H, Mean Corpuscular Hemoglobin Concent 32.6, Red Cell Distribution Width 13.2, Platelet Count 208, Mean Platelet Volume 5.0L, Neutrophils (%) (Auto) 84.7H, Lymphocytes (%) (Auto) 5.3L, Monocytes (%) (Auto) 9.1, Eosinophils (%) (Auto) 0.0, Basophils (%) (Auto) 0.9, Erythrocyte Sedimentation Rate 68H, Sodium Level 141, Potassium Level 4.7#, Chloride Level 106, Carbon Dioxide Level 28, Anion Gap 7, Blood Urea Nitrogen 10, Creatinine 0.7, Estimat Glomerular Filtration Rate > 60 , Glucose Level 115H, Calcium Level 8.5#, Phosphorus Level 2.4L, Magnesium Level 1.7L, Total Bilirubin 0.3, Aspartate Amino Transf (AST/SGOT) 65H, Alanine Aminotransferase (ALT/SGPT) 49, Alkaline Phosphatase 145H, C-Reactive Protein, Quantitative 8.4H, Total Protein 5.7#L, Albumin 2.1L, Globulin 3.6, Albumin/ Globulin Ratio 0.6L Current Medications Medications (Trade) Dose Ordered Sig/Mark Route PRN Reason Start Time Stop Time Status Last Admin Dose Admin Acetaminophen (Tylenol) 650 mg Q4H PRN ORAL Mild Pain (Pain Scale 1-3) 11/14/18 11:30 12/14/18 11:29 Acetaminophen (Tylenol) 650 mg Q4H PRN ORAL fever 11/14/18 11:30 12/14/18 11:29 Acetaminophen (Tylenol) 650 mg Q4H PRN RECTAL Mild Pain (Pain Scale 1-3) 11/14/18 11:30 12/14/18 11:29 Acetaminophen/ Hydrocodone Bitart ([place] 5/325) 1 tab Q6H PRN ORAL For Pain 11/14/18 11:30 11/21/18 11:29 11/15/18 14:37 Albuterol/ Ipratropium (Albuterol/ Ipratropium) 3 ml Q4H PRN HHN Shortness of Breath 11/14/18 11:30 11/19/18 11:29 Bisacodyl (Dulcolax) 10 mg HSPRN PRN RECTAL Constipation 11/14/18 11:30 12/14/18 11:29 Dextrose (Dextrose 50%) 25 ml Q30M PRN IV Hypoglycemia 11/14/18 11:30 12/14/18 11:29 Dextrose (Dextrose 50%) 50 ml Q30M PRN IV Hypoglycemia 11/14/18 11:30 12/14/18 11:29 Levofloxacin 100 ml @ 100 mls/hr Q24H IVPB 11/14/18 21:00 11/21/18 20:59 11/15/18 20:29 Metronidazole 100 ml @ 100 mls/hr Q8HR IVPB 11/14/18 22:00 11/21/18 21:59 11/16/18 06:07 Morphine Sulfate (Morphine Sulfate) 4 mg Q4H PRN IVP Severe Pain (Pain Scale 7-10) 11/14/18 11:30 11/21/18 11:29 11/15/18 20:53 Nitroglycerin (Ntg) 0.4 mg Q5M X 3 DOSES PRN SL Prn Chest Pain 11/14/18 11:30 12/14/18 11:29 Ondansetron HCl (Zofran) 4 mg Q6H PRN IVP Nausea & Vomiting 11/14/18 11:30 12/14/18 11:29 Polyethylene Glycol (Miralax) 17 gm DAILYPRN PRN ORAL Constipation 11/16/18 12:30 12/14/18 11:29 11/16/18 12:46 Potassium Chloride 40 meq/ Sodium Chloride 1,020 ml @ 75 mls/hr [id number] IV 11/15/18 12:00 12/15/18 11:59 11/16/18 01:43 Spironolactone (Aldactone) 25 mg DAILY ORAL 11/16/18 09:00 12/16/18 08:59 11/16/18 10:50 Piyush Briscoe MD Nov 16, 2018 13:10
--- NOTE | 2018-11-16 15:13 | Consultation ---
History of Present Illness General Chief Complaint: Dyspnea/Respdistress Present Illness Allergies: Coded Allergies: No Known Allergies (Unverified , 01/28/16) Medication History Scheduled PRN Hydrocodone Bit/Acetaminophen 5-325* ([place] 5-325*), 1 TAB ORAL Q6H PRN for For Pain Patient History Healthcare decision maker N Resuscitation status Advanced Directive on File Physical Exam Last 24 Hour Vital Signs Date Time Temp Pulse Resp B/P (MAP) Pulse Ox O2 Delivery O2 Flow Rate FiO2 11/16/18 12:00 98.1 115 16 137/68 (91) 20 11/16/18 09:00 Venturi Mask 4.0 Venturi Mask 11/16/18 08:00 98.1 113 20 126/74 (91) 98 11/16/18 07:49 Venturi Mask 4.0 30 11/16/18 07:49 97 Venturi Mask 4.0 30 11/16/18 07:49 108 19 Venturi Mask 4.0 30 11/16/18 04:00 98.3 101 18 126/64 (84) 100 11/16/18 00:00 98.0 98 18 134/79 (97) 98 11/15/18 21:00 Venturi Mask 10.0 11/15/18 20:00 97.5 96 16 133/80 (97) 100 11/15/18 16:00 98.1 103 18 132/73 (92) 100 Intake and Output 11/15/18 11/16/18 18:59 06:59 Intake Total 1280 ml 800 ml Balance 1280 ml 800 ml Intake Oral 480 ml 0 ml IV Total 800 ml 800 ml # Voids 2 1 Laboratory Tests Test 11/15/18 15:20 White Blood Count 7.6 K/UL (4.8-10.8) Red Blood Count 3.15 M/UL (4.20-5.40) L Hemoglobin 9.9 G/DL (12.0-16.0) L Hematocrit 30.5 % (37.0-47.0) L Mean Corpuscular Volume 97 FL (80-99) Mean Corpuscular Hemoglobin 31.5 PG (27.0-31.0) H Mean Corpuscular Hemoglobin Concent 32.6 G/DL (32.0-36.0) Red Cell Distribution Width 13.2 % (11.6-14.8) Platelet Count 208 K/UL (150-450) Mean Platelet Volume 5.0 FL (6.5-10.1) L Neutrophils (%) (Auto) 84.7 % (45.0-75.0) H Lymphocytes (%) (Auto) 5.3 % (20.0-45.0) L Monocytes (%) (Auto) 9.1 % (1.0-10.0) Eosinophils (%) (Auto) 0.0 % (0.0-3.0) Basophils (%) (Auto) 0.9 % (0.0-2.0) Erythrocyte Sedimentation Rate 68 MM/HR (0-30) H Sodium Level 141 MMOL/L (136-145) Potassium Level 4.7 MMOL/L (3.5-5.1) # Chloride Level 106 MMOL/L (98-107) Carbon Dioxide Level 28 MMOL/L (21-32) Anion Gap 7 mmol/L (5-15) Blood Urea Nitrogen 10 mg/dL (7-18) Creatinine 0.7 MG/DL (0.55-1.30) Estimat Glomerular Filtration Rate > 60 mL/min (>60) Glucose Level 115 MG/DL (74-106) H Calcium Level 8.5 MG/DL (8.5-10.1) # Phosphorus Level 2.4 MG/DL (2.5-4.9) L Magnesium Level 1.7 MG/DL (1.8-2.4) L Total Bilirubin 0.3 MG/DL (0.2-1.0) Aspartate Amino Transf (AST/SGOT) 65 U/L (15-37) H Alanine Aminotransferase (ALT/SGPT) 49 U/L (12-78) Alkaline Phosphatase 145 U/L (46-116) H C-Reactive Protein, Quantitative 8.4 mg/dL (0.00-0.90) H Total Protein 5.7 G/DL (6.4-8.2) #L Albumin 2.1 G/DL (3.4-5.0) L Globulin 3.6 g/dL Albumin/Globulin Ratio 0.6 (1.0-2.7) L Height (Feet): 5 Height (Inches): 8.00 Weight (Pounds): 90 Medications Current Medications Medications (Trade) Dose Ordered Sig/Mark Route PRN Reason Start Time Stop Time Status Last Admin Dose Admin Acetaminophen (Tylenol) 650 mg Q4H PRN ORAL Mild Pain (Pain Scale 1-3) 11/14/18 11:30 12/14/18 11:29 Acetaminophen (Tylenol) 650 mg Q4H PRN ORAL fever 11/14/18 11:30 12/14/18 11:29 Acetaminophen (Tylenol) 650 mg Q4H PRN RECTAL Mild Pain (Pain Scale 1-3) 11/14/18 11:30 12/14/18 11:29 Acetaminophen/ Hydrocodone Bitart ([place] 5/325) 1 tab Q6H PRN ORAL For Pain 11/14/18 11:30 11/21/18 11:29 11/15/18 14:37 Albuterol/ Ipratropium (Albuterol/ Ipratropium) 3 ml Q4H PRN HHN Shortness of Breath 11/14/18 11:30 11/19/18 11:29 Bisacodyl (Dulcolax) 10 mg HSPRN PRN RECTAL Constipation 11/14/18 11:30 12/14/18 11:29 Dextrose (Dextrose 50%) 25 ml Q30M PRN IV Hypoglycemia 11/14/18 11:30 12/14/18 11:29 Dextrose (Dextrose 50%) 50 ml Q30M PRN IV Hypoglycemia 11/14/18 11:30 12/14/18 11:29 Levofloxacin 100 ml @ 100 mls/hr Q24H IVPB 11/14/18 21:00 11/21/18 20:59 11/15/18 20:29 Metronidazole 100 ml @ 100 mls/hr Q8HR IVPB 11/14/18 22:00 11/21/18 21:59 11/16/18 14:42 Morphine Sulfate (Morphine Sulfate) 4 mg Q4H PRN IVP Severe Pain (Pain Scale 7-10) 11/14/18 11:30 11/21/18 11:29 11/15/18 20:53 Ondansetron HCl (Zofran) 4 mg Q6H PRN IVP Nausea & Vomiting 11/14/18 11:30 12/14/18 11:29 Polyethylene Glycol (Miralax) 17 gm DAILYPRN PRN ORAL Constipation 11/16/18 12:30 12/14/18 11:29 11/16/18 12:46 Potassium Chloride 40 meq/ Sodium Chloride 1,020 ml @ 75 mls/hr [id number] IV 11/15/18 12:00 12/15/18 11:59 11/16/18 01:43 Braeden Meyer MD Nov 16, 2018 15:13
[2018-11-16 15:38] LABS: EOSINOPHILS % (AUTO) 0.1 % (0.0-3.0); HEMATOCRIT 33.3 % (37.0-47.0); HEMOGLOBIN 10.9 G/DL (12.0-16.0); LYMPHOCYTES % (AUTO) 3.8 % (20.0-45.0); MEAN CORPUSCULAR VOLUME 96 FL (80-99); MONOCYTES % (AUTO) 10.8 % (1.0-10.0); NEUTROPHILS % (AUTO) 84.3 % (45.0-75.0); PLATELET COUNT 239 K/UL (150-450); RED BLOOD COUNT 3.48 M/UL (4.20-5.40); RED CELL DISTRIBUTION WIDTH 13.3 % (11.6-14.8); WHITE BLOOD COUNT 6.4 K/UL (4.8-10.8)
[2018-11-16 16:00] VITALS: BP 119/75
[2018-11-16 16:13] LABS: ALANINE AMINOTRANSFERASE 47 U/L (12-78); ALBUMIN 2.4 G/DL (3.4-5.0); ALBUMIN/GLOBULIN RATIO 0.8 (1.0-2.7); ALKALINE PHOSPHATASE 147 U/L (46-116); ANION GAP 9 mmol/L (5-15); ASPARTATE AMINO TRANSFERASE 50 U/L (15-37); BILIRUBIN,TOTAL 0.4 MG/DL (0.2-1.0); BLOOD UREA NITROGEN 10 mg/dL (7-18); CARBON DIOXIDE 28 MMOL/L (21-32); CHLORIDE 104 MMOL/L (98-107); CREATININE 0.6 MG/DL (0.55-1.30); PHOSPHORUS 2.8 MG/DL (2.5-4.9); POTASSIUM 4.4 MMOL/L (3.5-5.1); SODIUM 141 MMOL/L (136-145)
--- NOTE | 2018-11-16 18:12 | Internal Med Progress Note ---
Subjective Date of Service: Nov 16, 2018 Physician Name Jose Myers Attending Physician Allan Sidhu MD Current Medications Medications (Trade) Dose Ordered Sig/Mark Route PRN Reason Start Time Stop Time Status Last Admin Dose Admin Acetaminophen (Tylenol) 650 mg Q4H PRN ORAL Mild Pain (Pain Scale 1-3) 11/14/18 11:30 12/14/18 11:29 Acetaminophen (Tylenol) 650 mg Q4H PRN ORAL fever 11/14/18 11:30 12/14/18 11:29 Acetaminophen (Tylenol) 650 mg Q4H PRN RECTAL Mild Pain (Pain Scale 1-3) 11/14/18 11:30 12/14/18 11:29 Acetaminophen/ Hydrocodone Bitart ([place] 5/325) 1 tab Q6H PRN ORAL For Pain 11/14/18 11:30 11/21/18 11:29 11/15/18 14:37 Albuterol/ Ipratropium (Albuterol/ Ipratropium) 3 ml Q4H PRN HHN Shortness of Breath 11/14/18 11:30 11/19/18 11:29 Bisacodyl (Dulcolax) 10 mg HSPRN PRN RECTAL Constipation 11/14/18 11:30 12/14/18 11:29 Dextrose (Dextrose 50%) 25 ml Q30M PRN IV Hypoglycemia 11/14/18 11:30 12/14/18 11:29 Dextrose (Dextrose 50%) 50 ml Q30M PRN IV Hypoglycemia 11/14/18 11:30 12/14/18 11:29 Levofloxacin 100 ml @ 100 mls/hr Q24H IVPB 11/14/18 21:00 11/21/18 20:59 11/15/18 20:29 Metronidazole 100 ml @ 100 mls/hr Q8HR IVPB 11/14/18 22:00 11/21/18 21:59 11/16/18 14:42 Morphine Sulfate (Morphine Sulfate) 4 mg Q4H PRN IVP Severe Pain (Pain Scale 7-10) 11/14/18 11:30 11/21/18 11:29 11/15/18 20:53 Ondansetron HCl (Zofran) 4 mg Q6H PRN IVP Nausea & Vomiting 11/14/18 11:30 12/14/18 11:29 Polyethylene Glycol (Miralax) 17 gm DAILYPRN PRN ORAL Constipation 11/16/18 12:30 12/14/18 11:29 11/16/18 12:46 Potassium Chloride 40 meq/ Sodium Chloride 1,020 ml @ 75 mls/hr [id number] IV 11/15/18 12:00 12/15/18 11:59 11/16/18 01:43 Allergies: Coded Allergies: No Known Allergies (Unverified , 01/28/16) ROS Limited/Unobtainable: No Constitutional: Reports: no symptoms HEENT: Reports: no symptoms Cardiovascular: Reports: no symptoms Respiratory: Reports: shortness of breath Gastrointestinal/Abdominal: Reports: no symptoms Genitourinary: Reports: no symptoms Neurologic/Psychiatric: Reports: no symptoms Subjective 58 YO F admitted with shortness of breath. Now pneumonia. Cover for Int Med-dr Sidhu Objective Last Vital Signs Date Time Temp Pulse Resp B/P (MAP) Pulse Ox O2 Delivery O2 Flow Rate FiO2 11/16/18 17:00 115 11/16/18 16:00 97.2 20 119/75 (90) 98 11/16/18 09:00 Venturi Mask 4.0 Venturi Mask 11/16/18 07:49 30 Laboratory Tests Test 11/16/18 14:18 White Blood Count 6.4 K/UL (4.8-10.8) Red Blood Count 3.48 M/UL (4.20-5.40) L Hemoglobin 10.9 G/DL (12.0-16.0) L Hematocrit 33.3 % (37.0-47.0) L Mean Corpuscular Volume 96 FL (80-99) Mean Corpuscular Hemoglobin 31.3 PG (27.0-31.0) H Mean Corpuscular Hemoglobin Concent 32.7 G/DL (32.0-36.0) Red Cell Distribution Width 13.3 % (11.6-14.8) Platelet Count 239 K/UL (150-450) Mean Platelet Volume 4.7 FL (6.5-10.1) L Neutrophils (%) (Auto) 84.3 % (45.0-75.0) H Lymphocytes (%) (Auto) 3.8 % (20.0-45.0) L Monocytes (%) (Auto) 10.8 % (1.0-10.0) H Eosinophils (%) (Auto) 0.1 % (0.0-3.0) Basophils (%) (Auto) 1.0 % (0.0-2.0) Sodium Level 141 MMOL/L (136-145) Potassium Level 4.4 MMOL/L (3.5-5.1) Chloride Level 104 MMOL/L (98-107) Carbon Dioxide Level 28 MMOL/L (21-32) Anion Gap 9 mmol/L (5-15) Blood Urea Nitrogen 10 mg/dL (7-18) Creatinine 0.6 MG/DL (0.55-1.30) Estimat Glomerular Filtration Rate > 60 mL/min (>60) Glucose Level 117 MG/DL (74-106) H Calcium Level 9.0 MG/DL (8.5-10.1) Phosphorus Level 2.8 MG/DL (2.5-4.9) Magnesium Level 1.8 MG/DL (1.8-2.4) Total Bilirubin 0.4 MG/DL (0.2-1.0) Aspartate Amino Transf (AST/SGOT) 50 U/L (15-37) H Alanine Aminotransferase (ALT/SGPT) 47 U/L (12-78) Alkaline Phosphatase 147 U/L (46-116) H Total Protein 5.5 G/DL (6.4-8.2) L Albumin 2.4 G/DL (3.4-5.0) L Globulin 3.1 g/dL Albumin/Globulin Ratio 0.8 (1.0-2.7) L Microbiology Date/Time Source Procedure Growth Status 11/13/18 21:20 Blood Blood Culture - Preliminary Staphylococcus Sp Coag Neg Resulted 11/13/18 21:05 Blood Blood Culture - Preliminary Staphylococcus Sp Coag Neg Resulted 11/13/18 21:40 Nasal Nares Influenza Types A,B Antigen (DAYSI) - Final Complete Intake and Output 11/15/18 11/16/18 18:59 06:59 Intake Total 1280 ml 800 ml Balance 1280 ml 800 ml Intake Oral 480 ml 0 ml IV Total 800 ml 800 ml # Voids 2 1 Objective PHYSICAL EXAMINATION: GENERAL: The patient is awake, responsive, in no acute distress. HEAD AND NECK: Pupils equal and reactive to light. Anicteric. NECK: Supple. No JVD. LUNGS: Decreased air movement right. Occasional crackles bilaterally. HEART: S1, S2. Distant heart sounds. CHEST WALL: A keloid on the chest wall was noted mostly over the right side of chest wall and midline. ABDOMEN: Soft, mildly distended. No rebound tenderness. No fluid shift. EXTREMITIES: No cyanosis, clubbing, or edema. NEUROLOGIC: Cranial nerves II through XII are grossly intact. The patient moving all extremities spontaneously. Gait was not assessed due to the patient's status. Assessment/Plan Assessment/Plan ASSESSMENT: 1. Acute respiratory distress/failure, most likely secondary to possible aspiration pneumonia. 2. Acute kidney injury with dehydration. 3. Advanced right breast cancer with metastasis. 4. Hypertension. 5. Hypomagnesemia. 6. Hypokalemia. 7. Severe protein-calorie malnutrition. PLAN: After further discussion with the family member, the patient's code status is DNR/DNI, comfort care. The patient would go back to the hospice at home in a day or two. Continue Levaquin and Flagyl, IV hydration with D5 half-NS plus potassium. supplement magnesium as well as potassium. Discussed the case with Dr. Briscoe of Pulmonary/Critical Care and the patient will be discharged home on hospice. D/W brother and sister. Currently 24 hour cargivers at home. Request discharge home [facility] Jose Myers MD Nov 16, 2018 18:12
--- NOTE | 2018-11-16 19:30 | NUR ---
HAND-OFF: Report given to LUCIE Mlceod.
--- NOTE | 2018-11-16 19:47 | NUR ---
NURSE NOTES: Received patient awake,verbal,resting in bed,caregiver at bedside.
[2018-11-16 20:00] VITALS: BP 127/70
[2018-11-16] MEDS ORDERED: Vancomycin 750mg/NS 275ml IVPB SCH ×2 (20:00)
[2018-11-16] MEDS: Morphine Sulfate 4mg/ml Inj (IV USE ONLY) IVP PRN (23:37)
[2018-11-17 00:14] VITALS: BP 123/61
[2018-11-17 04:00] VITALS: BP 122/62
--- NOTE | 2018-11-17 07:24 | NUR ---
HAND-OFF: Report given to LUCIE Cain.
--- NOTE | 2018-11-17 07:30 | NUR ---
NURSE NOTES: Received patient on bed, awake. Information Security Manager at bedside. IV site intact and patent. Bed in low and locked position, call light in reach. No signs of respiratory distress or pain. Room board updated, will continue to monitor.
[2018-11-17 08:00] VITALS: BP 138/63
[2018-11-17] MEDS: Vancomycin 500mg/D5W 110ml IVPB SCH ×4 (08:10→20:12)
[2018-11-17 08:12] LABS: ANION GAP 8 mmol/L (5-15); BLOOD UREA NITROGEN 9 mg/dL (7-18); CALCIUM 8.3 MG/DL (8.5-10.1); CARBON DIOXIDE 23 MMOL/L (21-32); CHLORIDE 105 MMOL/L (98-107); CREATININE 0.7 MG/DL (0.55-1.30); POTASSIUM 4.2 MMOL/L (3.5-5.1); SODIUM 136 MMOL/L (136-145)
[2018-11-17 08:56] LABS: BASOPHILS % (AUTO) 1.7 % (0.0-2.0); EOSINOPHILS % (AUTO) 0.2 % (0.0-3.0); HEMATOCRIT 34.1 % (37.0-47.0); HEMOGLOBIN 10.9 G/DL (12.0-16.0); LYMPHOCYTES % (AUTO) 4.8 % (20.0-45.0); MEAN CORPUSCULAR VOLUME 97 FL (80-99); MONOCYTES % (AUTO) 13.1 % (1.0-10.0); NEUTROPHILS % (AUTO) 80.2 % (45.0-75.0); PLATELET COUNT 244 K/UL (150-450); RED BLOOD COUNT 3.52 M/UL (4.20-5.40); RED CELL DISTRIBUTION WIDTH 13.1 % (11.6-14.8); WHITE BLOOD COUNT 4.7 K/UL (4.8-10.8)
--- NOTE | 2018-11-17 11:46 | Consultation ---
History of Present Illness General Date patient seen: Nov 17, 2018 Time patient seen: 11:22 Chief Complaint: Dyspnea/Respdistress Present Illness HPI 58 y/o F with hx of HTN, CVA, MVP, R breast CA stage IV s/p Chemotherapy now patient on hospice, asthma, blindness presents to ED on 11/13 with acute respiratory distress after eating an apple sauce. She has not been eating well for 1 week prior to admission and has been having difficulty swallowing. Placed on CPAP in the field by EMS. Allergies: Coded Allergies: No Known Allergies (Unverified , 01/28/16) Medication History Scheduled PRN Hydrocodone Bit/Acetaminophen 5-325* ([place] 5-325*), 1 TAB ORAL Q6H PRN for For Pain Patient History Healthcare decision maker N Resuscitation status Advanced Directive on File Patient History Narrative Pmhx: as above Shx:Denies any smoking, alcohol, or drugs. Fhx: non contributory Review of Systems All Other Systems: negative except mentioned in HPI Physical Exam Physical Exam Narrative GENERAL: The patient is awake, responsive, in no acute distress. HEAD AND NECK: Pupils equal and reactive to light. Anicteric. NECK: Supple. No JVD. LUNGS: Decreased air in the bases. Occasional crackles. HEART: S1, S2. Distant heart sounds. CHEST WALL: A keloid on the chest wall was noted mostly over the right side of chest wall and midline. ABDOMEN: Soft, mildly distended. No rebound tenderness. No fluid shift. EXTREMITIES: No cyanosis, clubbing, or edema. NEUROLOGIC: Cranial nerves II through XII are grossly intact. The patient moving all extremities spontaneously. Gait was not assessed due to the patient's status. Last 24 Hour Vital Signs Date Time Temp Pulse Resp B/P (MAP) Pulse Ox O2 Delivery O2 Flow Rate FiO2 11/17/18 09:00 Venturi Mask 4.0 Venturi Mask 11/17/18 08:00 98.7 102 21 138/63 (88) 98 11/17/18 04:00 97.8 101 18 122/62 (82) 97 11/17/18 00:14 98.7 109 18 123/61 (81) 95 11/17/18 00:08 98.3 11/16/18 21:00 Venturi Mask 4.0 Venturi Mask 11/16/18 20:00 98.3 112 18 127/70 (89) 97 11/16/18 18:36 98 Venturi Mask 4.0 30 11/16/18 18:36 Venturi Mask 4.0 30 11/16/18 18:36 112 20 Venturi Mask 4.0 30 11/16/18 17:00 115 11/16/18 16:00 97.2 115 20 119/75 (90) 98 11/16/18 12:00 98.1 115 16 137/68 (91) 98 Intake and Output 11/16/18 11/17/18 19:00 07:00 Intake Total 240 ml 1250.000 ml Output Total 500 ml 700 ml Balance -260 ml 550.000 ml Intake Oral 240 ml 150 ml IV Total 1100.000 ml Output Urine Total 500 ml 700 ml # Voids 4 Laboratory Tests Test 11/16/18 14:18 11/17/18 06:55 11/17/18 08:45 White Blood Count 6.4 K/UL (4.8-10.8) 4.7 K/UL (4.8-10.8) L Red Blood Count 3.48 M/UL (4.20-5.40) L 3.52 M/UL (4.20-5.40) L Hemoglobin 10.9 G/DL (12.0-16.0) L 10.9 G/DL (12.0-16.0) L Hematocrit 33.3 % (37.0-47.0) L 34.1 % (37.0-47.0) L Mean Corpuscular Volume 96 FL (80-99) 97 FL (80-99) Mean Corpuscular Hemoglobin 31.3 PG (27.0-31.0) H 31.1 PG (27.0-31.0) H Mean Corpuscular Hemoglobin Concent 32.7 G/DL (32.0-36.0) 32.1 G/DL (32.0-36.0) Red Cell Distribution Width 13.3 % (11.6-14.8) 13.1 % (11.6-14.8) Platelet Count 239 K/UL (150-450) 244 K/UL (150-450) Mean Platelet Volume 4.7 FL (6.5-10.1) L 5.1 FL (6.5-10.1) L Neutrophils (%) (Auto) 84.3 % (45.0-75.0) H 80.2 % (45.0-75.0) H Lymphocytes (%) (Auto) 3.8 % (20.0-45.0) L 4.8 % (20.0-45.0) L Monocytes (%) (Auto) 10.8 % (1.0-10.0) H 13.1 % (1.0-10.0) H Eosinophils (%) (Auto) 0.1 % (0.0-3.0) 0.2 % (0.0-3.0) Basophils (%) (Auto) 1.0 % (0.0-2.0) 1.7 % (0.0-2.0) Sodium Level 141 MMOL/L (136-145) 136 MMOL/L (136-145) Potassium Level 4.4 MMOL/L (3.5-5.1) 4.2 MMOL/L (3.5-5.1) Chloride Level 104 MMOL/L (98-107) 105 MMOL/L (98-107) Carbon Dioxide Level 28 MMOL/L (21-32) 23 MMOL/L (21-32) Anion Gap 9 mmol/L (5-15) 8 mmol/L (5-15) Blood Urea Nitrogen 10 mg/dL (7-18) 9 mg/dL (7-18) Creatinine 0.6 MG/DL (0.55-1.30) 0.7 MG/DL (0.55-1.30) Estimat Glomerular Filtration Rate > 60 mL/min (>60) > 60 mL/min (>60) Glucose Level 117 MG/DL (74-106) H 96 MG/DL (74-106) Calcium Level 9.0 MG/DL (8.5-10.1) 8.3 MG/DL (8.5-10.1) L Phosphorus Level 2.8 MG/DL (2.5-4.9) Magnesium Level 1.8 MG/DL (1.8-2.4) Total Bilirubin 0.4 MG/DL (0.2-1.0) Aspartate Amino Transf (AST/SGOT) 50 U/L (15-37) H Alanine Aminotransferase (ALT/SGPT) 47 U/L (12-78) Alkaline Phosphatase 147 U/L (46-116) H Total Protein 5.5 G/DL (6.4-8.2) L Albumin 2.4 G/DL (3.4-5.0) L Globulin 3.1 g/dL Albumin/Globulin Ratio 0.8 (1.0-2.7) L Height (Feet): 5 Height (Inches): 8.00 Weight (Pounds): 90 Medications Current Medications Medications (Trade) Dose Ordered Sig/Mark Route PRN Reason Start Time Stop Time Status Last Admin Dose Admin Acetaminophen (Tylenol) 650 mg Q4H PRN ORAL Mild Pain (Pain Scale 1-3) 11/14/18 11:30 12/14/18 11:29 Acetaminophen (Tylenol) 650 mg Q4H PRN ORAL fever 11/14/18 11:30 12/14/18 11:29 Acetaminophen (Tylenol) 650 mg Q4H PRN RECTAL Mild Pain (Pain Scale 1-3) 11/14/18 11:30 12/14/18 11:29 Acetaminophen/ Hydrocodone Bitart ([place] 5/325) 1 tab Q6H PRN ORAL For Pain 11/14/18 11:30 11/21/18 11:29 11/15/18 14:37 Albuterol/ Ipratropium (Albuterol/ Ipratropium) 3 ml Q4H PRN HHN Shortness of Breath 11/14/18 11:30 11/19/18 11:29 Bisacodyl (Dulcolax) 10 mg HSPRN PRN RECTAL Constipation 11/14/18 11:30 12/14/18 11:29 Dextrose (Dextrose 50%) 25 ml Q30M PRN IV Hypoglycemia 11/14/18 11:30 12/14/18 11:29 Dextrose (Dextrose 50%) 50 ml Q30M PRN IV Hypoglycemia 11/14/18 11:30 12/14/18 11:29 Levofloxacin 100 ml @ 100 mls/hr Q24H IVPB 11/14/18 21:00 11/21/18 20:59 11/16/18 21:22 Metronidazole 100 ml @ 100 mls/hr Q8HR IVPB 11/14/18 22:00 11/21/18 21:59 11/17/18 05:23 Morphine Sulfate (Morphine Sulfate) 4 mg Q4H PRN IVP Severe Pain (Pain Scale 7-10) 11/14/18 11:30 11/21/18 11:29 11/16/18 23:37 Ondansetron HCl (Zofran) 4 mg Q6H PRN IVP Nausea & Vomiting 11/14/18 11:30 12/14/18 11:29 Polyethylene Glycol (Miralax) 17 gm DAILYPRN PRN ORAL Constipation 11/16/18 12:30 12/14/18 11:29 11/16/18 12:46 Potassium Chloride 40 meq/ Sodium Chloride 1,020 ml @ 75 mls/hr [id number] IV 11/15/18 12:00 12/15/18 11:59 11/17/18 05:23 Vancomycin HCl (Vanco rx to dose) 1 ea DAILY PRN MISC Per rx protocol 11/16/18 18:15 12/16/18 18:14 Vancomycin HCl 500 mg/Dextrose 110 ml @ 110 mls/hr Q12H IVPB 11/17/18 08:00 11/22/18 07:59 11/17/18 08:10 Assessment/Plan Assessment/Plan Abx: IV Vancomycin 11/16- Flagyl 11/14- Cefepime 11/13- Levaquin x1 11/13 Assessment: Respiratory distress, likely 2ry to aspiration- CXR with no PNA -11/13 CXR: Evidence old granulomatous disease. No definite acute process S. haemolyticus bacteremia- likely contaminant, awaiting repeat Bcx Afebrile NO leukocytosis HTN CVA MVP R breast CA stage IV s/p Chemotherapy now patient on hospice asthma blindness DNR/DNI Plan: -Continue Cefepime #5 and Flagyl #/5-7 pending repeat CXR to re-evaluate for PNA -Continue empiric IV Vancomycin #2 for now pending repeat Bcx -f/u cx -Monitor CBC/CMP, temperatures -Bcx x2, CXR -aspiration precautions Thank you for this consultation. Will continue to follow along with you. Discussed with Tianna Cruz M.D. Nov 17, 2018 11:46
--- NOTE | 2018-11-17 11:52 | NUR ---
ST NOTE: BEDSIDE SWALLOW EVAL RECEIVED BEDSIDE SWALLOW EVAL ORDER CHART REVIEWED PRIOR THE EVALUATION PT IS A 58-YEAR-OLD FEMALE WHO WAS ADMITTED DUE TO ACUTE RESP FAILURE. DYSPHAGIA RISK FACTORS: ADVANCED R BREAST CA, HTN, DIFFICULTY SWALLOWING PLOF: PT LIVES AT HOME WITH 24 CAREGIVER CARE. NO POLST WAS NOTED IN THE CHART. CURRENTLY, PT IS DNR/DNI. PER CG, PT WAS EATING PUREED FOOD BUT HAS DIFFICULTY WITH THIN LIQUIDS, AND REQUIRED SWALLOW X 3 TIMES PER BITE. CURRENT STATUS: PT SEEN AT BEDSIDE IN AM WITH CG AT THE BEDSIDE. PT IS ABLE TO FOLLOW SIMPLE DIRECTIONS WITH CUES. ALERT AND COOPERATIVE. GIVEN PO TRIALS: THIN(TSP), NECTAR THICK(TSP) AND PUREE(TSP) INITIAL IMPRESSION: PROBABLE MODERATE OR WORSENED OROPHARYNGEAL DYSPHAGIA INCREASED ORAL TRANSIT TIME AND OROPHARYNGEAL TRANSIT TIME FAIR LARYNGEAL ELEVATION, PT DID DEMONSTRATE SWALLOW X 2 TIMES PER BITE, SOME THROAT CLEARING WAS NOTED WITH THIN LIQUIDS. HAS HIGH RISK FOR ASPIRATION DUE TO PT'S MEDICAL CONDITIONS. RECOMMENDATIONS: 1. FOR QUALITY OF LIFE, PO SHOULD BE GIVEN COMFORT FEEDING CHANGED DIET TO LIQUIFIED PUREED, LIKE NECTAR THICK SOUP CONSISTENCY WITH NECTAR THICK LIQUIDS. 2. STRICT ASPIRATION PRECAUTION WITH 1TO1 FEEDING 3. HOLD OFF ON VIDEOSWALLOW STUDY AT THIS TIME D/W CG, PT'S FAMILY AND RNBEBETO POSTED ASPIRATION/REFLUX PRECAUTIONS SIGN
[2018-11-17 12:00] VITALS: BP 136/65
--- NOTE | 2018-11-17 13:13 | Pulmonology Progress Note ---
Assessment/Plan Problems: (1) Hypomagnesemia (2) Aspiration pneumonia (3) Metastatic breast cancer (4) Hypocalcemia (5) Hypokalemia Assessment/Plan d/w sister at the bed site aspiration precaution respiratory treatment K and mg supplement Aldactone to increase K pain management swallow evaluation. noted K better, d/c aldactone dc planning Subjective ROS Limited/Unobtainable: No Constitutional: Reports: no symptoms Allergies: Uncoded Allergies: Fish (Allergy, Unknown, 11/18/18) Per family, patient is allergic to all the fish, reaction unknown Objective Last 24 Hour Vital Signs Date Time Temp Pulse Resp B/P (MAP) Pulse Ox O2 Delivery O2 Flow Rate FiO2 11/17/18 09:00 Venturi Mask 4.0 Venturi Mask 11/17/18 08:00 98.7 102 21 138/63 (88) 98 11/17/18 04:00 97.8 101 18 122/62 (82) 97 11/17/18 00:14 98.7 109 18 123/61 (81) 95 11/17/18 00:08 98.3 11/16/18 21:00 Venturi Mask 4.0 Venturi Mask 11/16/18 20:00 98.3 112 18 127/70 (89) 97 11/16/18 18:36 98 Venturi Mask 4.0 30 11/16/18 18:36 Venturi Mask 4.0 30 11/16/18 18:36 112 20 Venturi Mask 4.0 30 11/16/18 17:00 115 11/16/18 16:00 97.2 115 20 119/75 (90) 98 Intake and Output 11/16/18 11/17/18 19:00 07:00 Intake Total 240 ml 1250.000 ml Output Total 500 ml 700 ml Balance -260 ml 550.000 ml Intake Oral 240 ml 150 ml IV Total 1100.000 ml Output Urine Total 500 ml 700 ml # Voids 4 Objective General Appearance: cachectic Lines, tubes and drains: peripheral HEENT: normocephalic, atraumatic Neck: non-tender Respiratory/Chest: chest wall non-tender, normal breath sounds Breasts: no masses Cardiovascular/Chest: normal peripheral pulses Genitourinary/Rectal: normal genital exam Extremities: normal range of motion Laboratory Tests 11/16/18 14:18: White Blood Count 6.4, Red Blood Count 3.48L, Hemoglobin 10.9L, Hematocrit 33.3L , Mean Corpuscular Volume 96, Mean Corpuscular Hemoglobin 31.3H, Mean Corpuscular Hemoglobin Concent 32.7, Red Cell Distribution Width 13.3, Platelet Count 239, Mean Platelet Volume 4.7L, Neutrophils (%) (Auto) 84.3H, Lymphocytes (%) (Auto) 3.8L, Monocytes (%) (Auto) 10.8H, Eosinophils (%) (Auto) 0.1, Basophils (%) (Auto) 1.0, Sodium Level 141, Potassium Level 4.4, Chloride Level 104, Carbon Dioxide Level 28, Anion Gap 9, Blood Urea Nitrogen 10, Creatinine 0.6, Estimat Glomerular Filtration Rate > 60, Glucose Level 117H, Calcium Level 9.0, Phosphorus Level 2.8, Magnesium Level 1.8, Total Bilirubin 0.4, Aspartate Amino Transf (AST/SGOT) 50H, Alanine Aminotransferase (ALT/SGPT) 47, Alkaline Phosphatase 147H, Total Protein 5.5L, Albumin 2.4L, Globulin 3.1, Albumin/ Globulin Ratio 0.8L 11/17/18 06:55: Sodium Level 136, Potassium Level 4.2, Chloride Level 105, Carbon Dioxide Level 23, Anion Gap 8, Blood Urea Nitrogen 9, Creatinine 0.7, Estimat Glomerular Filtration Rate > 60, Glucose Level 96, Calcium Level 8.3L 11/17/18 08:45: White Blood Count 4.7L, Red Blood Count 3.52L, Hemoglobin 10.9L, Hematocrit 34.1L, Mean Corpuscular Volume 97, Mean Corpuscular Hemoglobin 31.1H, Mean Corpuscular Hemoglobin Concent 32.1, Red Cell Distribution Width 13.1, Platelet Count 244, Mean Platelet Volume 5.1L, Neutrophils (%) (Auto) 80.2H, Lymphocytes (%) (Auto) 4.8L, Monocytes (%) (Auto) 13.1H, Eosinophils (%) (Auto) 0.2, Basophils (%) (Auto) 1.7 Current Medications Medications (Trade) Dose Ordered Sig/Mark Route PRN Reason Start Time Stop Time Status Last Admin Dose Admin Acetaminophen (Tylenol) 650 mg Q4H PRN ORAL Mild Pain (Pain Scale 1-3) 11/14/18 11:30 3/17/19 11:29 Acetaminophen (Tylenol) 650 mg Q4H PRN ORAL fever 11/14/18 11:30 12/14/18 11:29 Acetaminophen (Tylenol) 650 mg Q4H PRN RECTAL Mild Pain (Pain Scale 1-3) 11/14/18 11:30 12/14/18 11:29 Acetaminophen/ Hydrocodone Bitart ([place] 5/325) 1 tab Q6H PRN ORAL For Pain 11/14/18 11:30 11/21/18 11:29 11/15/18 14:37 Albuterol/ Ipratropium (Albuterol/ Ipratropium) 3 ml Q4H PRN HHN Shortness of Breath 11/14/18 11:30 11/19/18 11:29 Bisacodyl (Dulcolax) 10 mg HSPRN PRN RECTAL Constipation 11/14/18 11:30 12/14/18 11:29 Dextrose (Dextrose 50%) 25 ml Q30M PRN IV Hypoglycemia 11/14/18 11:30 12/14/18 11:29 Dextrose (Dextrose 50%) 50 ml Q30M PRN IV Hypoglycemia 11/14/18 11:30 12/14/18 11:29 Levofloxacin 100 ml @ 100 mls/hr Q24H IVPB 11/14/18 21:00 11/21/18 20:59 11/16/18 21:22 Metronidazole 100 ml @ 100 mls/hr Q8HR IVPB 11/14/18 22:00 11/21/18 21:59 11/17/18 05:23 Morphine Sulfate (Morphine Sulfate) 4 mg Q4H PRN IVP Severe Pain (Pain Scale 7-10) 11/14/18 11:30 11/21/18 11:29 11/16/18 23:37 Ondansetron HCl (Zofran) 4 mg Q6H PRN IVP Nausea & Vomiting 11/14/18 11:30 12/14/18 11:29 Polyethylene Glycol (Miralax) 17 gm DAILYPRN PRN ORAL Constipation 11/16/18 12:30 12/14/18 11:29 11/16/18 12:46 Potassium Chloride 40 meq/ Sodium Chloride 1,020 ml @ 75 mls/hr [id number] IV 11/15/18 12:00 12/15/18 11:59 11/17/18 05:23 Vancomycin HCl (Vanco rx to dose) 1 ea DAILY PRN MISC Per rx protocol 11/16/18 18:15 12/16/18 18:14 Vancomycin HCl 500 mg/Dextrose 110 ml @ 110 mls/hr Q12H IVPB 11/17/18 08:00 11/22/18 07:59 11/17/18 08:10 Piyush Briscoe MD Nov 17, 2018 13:13
--- NOTE | 2018-11-17 13:26 | NUR ---
RADIOLOGY DEPT CHEST X-RAY DONE.-P.DYE
[2018-11-17] MEDS: Morphine Sulfate 4mg/ml Inj (IV USE ONLY) IVP PRN ×2 (14:12→18:40)
--- NOTE | 2018-11-17 14:47 | Diagnostic Imaging Report ---
Indication: Cough Comparison: 11/13/2018 A single view chest radiograph was obtained. Findings: Calcified granulomata noted in the right lung. There is hazy right basilar opacification which may be due to pleural thickening although a pleural effusion is not excluded. Some parenchymal linear densities are noted at the right lung base and the right upper lobe likely scarring. There is a upper extremity port with the tip projected over the SVC. IMPRESSION: Chronic lung disease. No change from the prior examination.
[2018-11-17 16:00] VITALS: BP 129/64
--- NOTE | 2018-11-17 18:06 | Internal Med Progress Note ---
Subjective Date of Service: Nov 17, 2018 Physician Name oJse Myers Attending Physician Allan Sidhu MD Current Medications Medications (Trade) Dose Ordered Sig/Mark Route PRN Reason Start Time Stop Time Status Last Admin Dose Admin Acetaminophen (Tylenol) 650 mg Q4H PRN ORAL Mild Pain (Pain Scale 1-3) 11/14/18 11:30 12/14/18 11:29 Acetaminophen (Tylenol) 650 mg Q4H PRN ORAL fever 11/14/18 11:30 12/14/18 11:29 Acetaminophen (Tylenol) 650 mg Q4H PRN RECTAL Mild Pain (Pain Scale 1-3) 11/14/18 11:30 12/14/18 11:29 Acetaminophen/ Hydrocodone Bitart ([place] 5/325) 1 tab Q6H PRN ORAL For Pain 11/14/18 11:30 11/21/18 11:29 11/15/18 14:37 Albuterol/ Ipratropium (Albuterol/ Ipratropium) 3 ml Q4H PRN HHN Shortness of Breath 11/14/18 11:30 11/19/18 11:29 Bisacodyl (Dulcolax) 10 mg HSPRN PRN RECTAL Constipation 11/14/18 11:30 12/14/18 11:29 Dextrose (Dextrose 50%) 25 ml Q30M PRN IV Hypoglycemia 11/14/18 11:30 12/14/18 11:29 Dextrose (Dextrose 50%) 50 ml Q30M PRN IV Hypoglycemia 11/14/18 11:30 12/14/18 11:29 Levofloxacin 100 ml @ 100 mls/hr Q24H IVPB 11/14/18 21:00 11/21/18 20:59 11/16/18 21:22 Metronidazole 100 ml @ 100 mls/hr Q8HR IVPB 11/14/18 22:00 11/21/18 21:59 11/17/18 14:13 Morphine Sulfate (Morphine Sulfate) 4 mg Q4H PRN IVP Severe Pain (Pain Scale 7-10) 11/14/18 11:30 11/21/18 11:29 11/17/18 14:12 Ondansetron HCl (Zofran) 4 mg Q6H PRN IVP Nausea & Vomiting 11/14/18 11:30 12/14/18 11:29 Polyethylene Glycol (Miralax) 17 gm DAILYPRN PRN ORAL Constipation 11/16/18 12:30 12/14/18 11:29 11/16/18 12:46 Potassium Chloride 40 meq/ Sodium Chloride 1,020 ml @ 75 mls/hr [id number] IV 11/15/18 12:00 12/15/18 11:59 11/17/18 05:23 Vancomycin HCl (Vanco rx to dose) 1 ea DAILY PRN MISC Per rx protocol 11/16/18 18:15 12/16/18 18:14 Vancomycin HCl 500 mg/Dextrose 110 ml @ 110 mls/hr Q12H IVPB 11/17/18 08:00 11/22/18 07:59 11/17/18 08:10 Allergies: Coded Allergies: No Known Allergies (Unverified , 01/28/16) ROS Limited/Unobtainable: Yes Subjective 58 YO F admitted with shortness of breath. Now pneumonia. Cover for Int Suresh-dr Sidhu Objective Last Vital Signs Date Time Temp Pulse Resp B/P (MAP) Pulse Ox O2 Delivery O2 Flow Rate FiO2 11/17/18 16:00 98.4 92 21 129/64 (85) 97 11/17/18 09:00 Venturi Mask 4.0 Venturi Mask 11/16/18 18:36 30 Laboratory Tests Test 11/17/18 06:55 11/17/18 08:45 Sodium Level 136 MMOL/L (136-145) Potassium Level 4.2 MMOL/L (3.5-5.1) Chloride Level 105 MMOL/L (98-107) Carbon Dioxide Level 23 MMOL/L (21-32) Anion Gap 8 mmol/L (5-15) Blood Urea Nitrogen 9 mg/dL (7-18) Creatinine 0.7 MG/DL (0.55-1.30) Estimat Glomerular Filtration Rate > 60 mL/min (>60) Glucose Level 96 MG/DL (74-106) Calcium Level 8.3 MG/DL (8.5-10.1) L White Blood Count 4.7 K/UL (4.8-10.8) L Red Blood Count 3.52 M/UL (4.20-5.40) L Hemoglobin 10.9 G/DL (12.0-16.0) L Hematocrit 34.1 % (37.0-47.0) L Mean Corpuscular Volume 97 FL (80-99) Mean Corpuscular Hemoglobin 31.1 PG (27.0-31.0) H Mean Corpuscular Hemoglobin Concent 32.1 G/DL (32.0-36.0) Red Cell Distribution Width 13.1 % (11.6-14.8) Platelet Count 244 K/UL (150-450) Mean Platelet Volume 5.1 FL (6.5-10.1) L Neutrophils (%) (Auto) 80.2 % (45.0-75.0) H Lymphocytes (%) (Auto) 4.8 % (20.0-45.0) L Monocytes (%) (Auto) 13.1 % (1.0-10.0) H Eosinophils (%) (Auto) 0.2 % (0.0-3.0) Basophils (%) (Auto) 1.7 % (0.0-2.0) Intake and Output 11/16/18 11/17/18 18:59 06:59 Intake Total 240 ml 1250.000 ml Output Total 500 ml 700 ml Balance -260 ml 550.000 ml Intake Oral 240 ml 150 ml IV Total 1100.000 ml Output Urine Total 500 ml 700 ml # Voids 4 Objective PHYSICAL EXAMINATION: GENERAL: The patient is awake, responsive, in no acute distress. HEAD AND NECK: Pupils equal and reactive to light. Anicteric. NECK: Supple. No JVD. LUNGS: Decreased air movement right. Occasional crackles bilaterally. HEART: S1, S2. Distant heart sounds. CHEST WALL: A keloid on the chest wall was noted mostly over the right side of chest wall and midline. ABDOMEN: Soft, mildly distended. No rebound tenderness. No fluid shift. EXTREMITIES: No cyanosis, clubbing, or edema. NEUROLOGIC: Cranial nerves II through XII are grossly intact. The patient moving all extremities spontaneously. Gait was not assessed due to the patient's status. Assessment/Plan Assessment/Plan ASSESSMENT: 1. Acute respiratory distress/failure 2. aspiration pneumonia. 2. Acute kidney injury with dehydration. 3. Advanced right breast cancer with metastasis. 4. Hypertension. 5. Hypomagnesemia. 6. Hypokalemia. 7. Severe protein-calorie malnutrition. 8. Sepsis PLAN: After further discussion with the family member, the patient's code status is DNR/DNI, comfort care. The patient would go back to the hospice -[facility] hospice notified Continue Levaquin and Flagyl, IV hydration with D5 half-NS plus potassium. supplement magnesium as well as potassium. Discussed the case with Dr. Briscoe of Pulmonary/Critical Care and the patient will be discharged home on hospice. D/W brother and sister. Currently 24 hour cargivers at home. Request discharge home with [facility] continue antibiotics per ID; await repeat blood cultures. Jose Myers MD Nov 17, 2018 18:06
--- NOTE | 2018-11-17 19:03 | NUR ---
HAND-OFF: Report given to LUCIE Santana.
[2018-11-17 20:00] VITALS: BP 126/56
--- NOTE | 2018-11-17 20:07 | NUR ---
NURSE NOTES: Received patient awake on the commode, 2 caregivers at the bedside. IV site asymptomatic, dressing dry and intact. Venturi mask noted at 4L/min. Bed on lowest position, 3 side rails up, call light and belongings within reach.
--- NOTE | 2018-11-17 20:45 | NUR ---
CASE MANAGEMENT: REVIEW 58/F BIBA FROM HOME CC: RESP DISTRESS SI: RESP DISTRESS T 99.9 HR 140 RR 15 BP 155/77 SAT 100% BIPAP FIO2 35 H/H 9.9/30.5 NA 149 K 2.1 KERRI <5.0 IS: SOLU MEDROL IV X1 NS IVF BOLUS X1 CALCIUM CHLORIDE IV X1 KCl IVF BOLUS X1 PATIENT ADMITTED TO MED/SURG UNIT 11/13/2018 DCP: PATIENT IS FROM HOME
--- NOTE | 2018-11-17 21:23 | General Progress Note ---
Subjective Allergies: Coded Allergies: No Known Allergies (Unverified , 01/28/16) Objective Last 24 Hour Vital Signs Date Time Temp Pulse Resp B/P (MAP) Pulse Ox O2 Delivery O2 Flow Rate FiO2 11/17/18 20:00 98 18 Room Air 21 11/17/18 20:00 Room Air 21 11/17/18 20:00 96 Room Air 21 11/17/18 16:00 98.4 92 21 129/64 (85) 97 11/17/18 12:00 99.3 110 19 136/65 (88) 11/17/18 09:00 Venturi Mask 4.0 Venturi Mask 11/17/18 08:00 98.7 102 21 138/63 (88) 98 11/17/18 04:00 97.8 101 18 122/62 (82) 97 11/17/18 00:14 98.7 109 18 123/61 (81) 95 11/17/18 00:08 98.3 Intake and Output 11/16/18 11/17/18 18:59 06:59 Intake Total 240 ml 1250.000 ml Output Total 500 ml 700 ml Balance -260 ml 550.000 ml Intake Oral 240 ml 150 ml IV Total 1100.000 ml Output Urine Total 500 ml 700 ml # Voids 4 Laboratory Tests 11/17/18 06:55: Sodium Level 136, Potassium Level 4.2, Chloride Level 105, Carbon Dioxide Level 23, Anion Gap 8, Blood Urea Nitrogen 9, Creatinine 0.7, Estimat Glomerular Filtration Rate > 60, Glucose Level 96, Calcium Level 8.3L 11/17/18 08:45: White Blood Count 4.7L, Red Blood Count 3.52L, Hemoglobin 10.9L, Hematocrit 34.1L, Mean Corpuscular Volume 97, Mean Corpuscular Hemoglobin 31.1H, Mean Corpuscular Hemoglobin Concent 32.1, Red Cell Distribution Width 13.1, Platelet Count 244, Mean Platelet Volume 5.1L, Neutrophils (%) (Auto) 80.2H, Lymphocytes (%) (Auto) 4.8L, Monocytes (%) (Auto) 13.1H, Eosinophils (%) (Auto) 0.2, Basophils (%) (Auto) 1.7 Height (Feet): 5 Height (Inches): 8.00 Weight (Pounds): 90 Braeden Meyer MD Nov 17, 2018 21:23
[2018-11-18] VITALS: BP 116/65
[2018-11-18 04:00] VITALS: BP 125/62
--- NOTE | 2018-11-18 06:00 | NUR ---
NURSE NOTES: [place] from lab aware of Vanco trough draw for this AM
--- NOTE | 2018-11-18 07:12 | NUR ---
HAND-OFF: Report given to LUCIE Jett. Addendum: 11/18/18 at 0754 by NORMA HE RN RN Pls disregard above note.
[2018-11-18 07:15] LABS: HEMATOCRIT 35.3 % (37.0-47.0); HEMOGLOBIN 11.3 G/DL (12.0-16.0); MEAN CORPUSCULAR VOLUME 96 FL (80-99); PLATELET COUNT 272 K/UL (150-450); RED CELL DISTRIBUTION WIDTH 13.3 % (11.6-14.8); WHITE BLOOD COUNT 5.3 K/UL (4.8-10.8)
[2018-11-18 07:32] LABS: ANION GAP 3 mmol/L (5-15); BLOOD UREA NITROGEN 9 mg/dL (7-18); CALCIUM 8.6 MG/DL (8.5-10.1); CARBON DIOXIDE 31 MMOL/L (21-32); CHLORIDE 104 MMOL/L (98-107); CREATININE 0.8 MG/DL (0.55-1.30); POTASSIUM 4.4 MMOL/L (3.5-5.1); SODIUM 138 MMOL/L (136-145)
--- NOTE | 2018-11-18 07:54 | NUR ---
HAND-OFF: Report given to LUCIE Umana.
[2018-11-18 08:00] VITALS: BP 137/69
[2018-11-18] MEDS ORDERED: Vancomycin 1gm/D5W 275ml IVPB SCH ×4 (08:00→09:00)
--- NOTE | 2018-11-18 08:00 | NUR ---
NURSE NOTES: Received patient on bed, awake. Verbally responsive. Not in acute distress noted. IV site intact and patent.No s/s of infiltration. Bed in low and locked position, call light in reach. No s/s of pain or discomfort. Room board updated, will continue to monitor and plan of care.
[2018-11-18 12:00] VITALS: BP 136/68
[2018-11-18] MEDS: Norco 5mg/325mg tab ORAL PRN (12:12)
--- NOTE | 2018-11-18 12:57 | Infectious Diseases Prog Note ---
Assessment/Plan Assessment/Plan Assessment: Respiratory distress, likely 2ry to aspiration- CXR with no PNA -11/17 CXR: Chronic lung disease. No change from the prior examination. -11/13 CXR: Evidence old granulomatous disease. No definite acute process S. haemolyticus bacteremia- likely contaminant, awaiting repeat Bcx Afebrile NO leukocytosis HTN CVA MVP R breast CA stage IV s/p Chemotherapy now patient on hospice asthma blindness DNR/DNI Plan: -D/c Levaquin #6 and Flagyl #/6 -Continue empiric IV Vancomycin #3 for now pending repeat Bcx -11/13 SP Cefepime x1 -f/u cx -Monitor CBC/CMP, temperatures -aspiration precautions Thank you for this consultation. Will continue to follow along with you. Discussed with RN. Subjective Allergies: Uncoded Allergies: Fish (Allergy, Unknown, 11/18/18) Per family, patient is allergic to all the fish, reaction unknown Subjective afebrile on/off venturi mask repaet Bcx p Objective Vital Signs Last 24 Hour Vital Signs Date Time Temp Pulse Resp B/P (MAP) Pulse Ox O2 Delivery O2 Flow Rate FiO2 11/18/18 12:00 98.7 117 18 136/68 (90) 99 11/18/18 09:00 Room Air Venturi Mask 11/18/18 08:00 99.4 112 17 137/69 (91) 97 11/18/18 06:58 105 16 Room Air 21 11/18/18 06:58 Room Air 21 11/18/18 06:58 98 Room Air 21 11/18/18 04:00 98.5 103 16 125/62 (83) 100 11/18/18 00:00 98.5 99 16 116/65 (82) 97 11/17/18 21:00 Venturi Mask 4.0 Venturi Mask 11/17/18 20:00 98 18 Room Air 21 11/17/18 20:00 98.2 95 18 126/56 (79) 97 11/17/18 20:00 Room Air 21 11/17/18 20:00 96 Room Air 21 11/17/18 16:00 98.4 92 21 129/64 (85) 97 Height (Feet): 5 Height (Inches): 8.00 Weight (Pounds): 90 Objective GENERAL: The patient is awake, responsive, in no acute distress. HEAD AND NECK: Pupils equal and reactive to light. Anicteric. NECK: Supple. No JVD. LUNGS: Decreased air in the bases. Occasional crackles. HEART: S1, S2. Distant heart sounds. CHEST WALL: A keloid on the chest wall was noted mostly over the right side of chest wall and midline. ABDOMEN: Soft, mildly distended. No rebound tenderness. No fluid shift. EXTREMITIES: No cyanosis, clubbing, or edema. NEUROLOGIC: Cranial nerves II through XII are grossly intact. The patient moving all extremities spontaneously. Gait was not assessed due to the patient's status. Laboratory Tests Test 11/18/18 06:55 White Blood Count 5.3 K/UL (4.8-10.8) Red Blood Count 3.70 M/UL (4.20-5.40) L Hemoglobin 11.3 G/DL (12.0-16.0) L Hematocrit 35.3 % (37.0-47.0) L Mean Corpuscular Volume 96 FL (80-99) Mean Corpuscular Hemoglobin 30.5 PG (27.0-31.0) Mean Corpuscular Hemoglobin Concent 32.0 G/DL (32.0-36.0) Red Cell Distribution Width 13.3 % (11.6-14.8) Platelet Count 272 K/UL (150-450) Mean Platelet Volume 5.0 FL (6.5-10.1) L Neutrophils (%) (Auto) % (45.0-75.0) Lymphocytes (%) (Auto) % (20.0-45.0) Monocytes (%) (Auto) % (1.0-10.0) Eosinophils (%) (Auto) % (0.0-3.0) Basophils (%) (Auto) % (0.0-2.0) Differential Total Cells Counted 100 Neutrophils % (Manual) 83 % (45-75) H Lymphocytes % (Manual) 4 % (20-45) L Monocytes % (Manual) 13 % (1-10) H Eosinophils % (Manual) 0 % (0-3) Basophils % (Manual) 0 % (0-2) Band Neutrophils 0 % (0-8) Platelet Estimate Adequate Platelet Morphology Normal Red Blood Cell Morphology Normal Sodium Level 138 MMOL/L (136-145) Potassium Level 4.4 MMOL/L (3.5-5.1) Chloride Level 104 MMOL/L (98-107) Carbon Dioxide Level 31 MMOL/L (21-32) Anion Gap 3 mmol/L (5-15) L Blood Urea Nitrogen 9 mg/dL (7-18) Creatinine 0.8 MG/DL (0.55-1.30) Estimat Glomerular Filtration Rate > 60 mL/min (>60) Glucose Level 94 MG/DL (74-106) Calcium Level 8.6 MG/DL (8.5-10.1) Vancomycin Level Trough 3.5 ug/mL (5.0-12.0) L Current Medications Medications (Trade) Dose Ordered Sig/Mark Route PRN Reason Start Time Stop Time Status Last Admin Dose Admin Acetaminophen (Tylenol) 650 mg Q4H PRN ORAL Mild Pain (Pain Scale 1-3) 11/14/18 11:30 12/14/18 11:29 Acetaminophen (Tylenol) 650 mg Q4H PRN ORAL fever 11/14/18 11:30 12/14/18 11:29 Acetaminophen (Tylenol) 650 mg Q4H PRN RECTAL Mild Pain (Pain Scale 1-3) 11/14/18 11:30 12/14/18 11:29 Acetaminophen/ Hydrocodone Bitart ([place] 5/325) 1 tab Q6H PRN ORAL For Pain 11/14/18 11:30 11/21/18 11:29 11/18/18 12:12 Albuterol/ Ipratropium (Albuterol/ Ipratropium) 3 ml Q4H PRN HHN Shortness of Breath 11/14/18 11:30 11/19/18 11:29 Bisacodyl (Dulcolax) 10 mg HSPRN PRN RECTAL Constipation 11/14/18 11:30 12/14/18 11:29 Dextrose (Dextrose 50%) 25 ml Q30M PRN IV Hypoglycemia 11/14/18 11:30 12/14/18 11:29 Dextrose (Dextrose 50%) 50 ml Q30M PRN IV Hypoglycemia 11/14/18 11:30 12/14/18 11:29 Levofloxacin 100 ml @ 100 mls/hr Q24H IVPB 11/14/18 21:00 11/21/18 20:59 11/17/18 21:29 Metronidazole 100 ml @ 100 mls/hr Q8HR IVPB 11/14/18 22:00 11/21/18 21:59 11/18/18 06:19 Morphine Sulfate (Morphine Sulfate) 4 mg Q4H PRN IVP Severe Pain (Pain Scale 7-10) 11/14/18 11:30 11/21/18 11:29 11/17/18 18:40 Ondansetron HCl (Zofran) 4 mg Q6H PRN IVP Nausea & Vomiting 11/14/18 11:30 12/14/18 11:29 Polyethylene Glycol (Miralax) 17 gm DAILYPRN PRN ORAL Constipation 11/16/18 12:30 12/14/18 11:29 11/16/18 12:46 Potassium Chloride 40 meq/ Sodium Chloride 1,020 ml @ 75 mls/hr [id number] IV 11/15/18 12:00 12/15/18 11:59 11/18/18 08:13 Vancomycin HCl (Vanco rx to dose) 1 ea DAILY PRN MISC Per rx protocol 11/16/18 18:15 12/16/18 18:14 Vancomycin HCl 1 gm/Dextrose 275 ml @ 183.708 mls/hr Q12H IVPB 11/18/18 09:00 11/23/18 08:59 11/18/18 09:44 Tianna Lobo M.D. Nov 18, 2018 12:57
--- NOTE | 2018-11-18 13:02 | General Progress Note ---
Subjective Allergies: Uncoded Allergies: Fish (Allergy, Unknown, 11/18/18) Per family, patient is allergic to all the fish, reaction unknown Objective Last 24 Hour Vital Signs Date Time Temp Pulse Resp B/P (MAP) Pulse Ox O2 Delivery O2 Flow Rate FiO2 11/18/18 12:00 98.7 117 18 136/68 (90) 99 11/18/18 09:00 Room Air Venturi Mask 11/18/18 08:00 99.4 112 17 137/69 (91) 97 11/18/18 06:58 105 16 Room Air 21 11/18/18 06:58 Room Air 21 11/18/18 06:58 98 Room Air 21 11/18/18 04:00 98.5 103 16 125/62 (83) 100 11/18/18 00:00 98.5 99 16 116/65 (82) 97 11/17/18 21:00 Venturi Mask 4.0 Venturi Mask 11/17/18 20:00 98 18 Room Air 21 11/17/18 20:00 98.2 95 18 126/56 (79) 97 11/17/18 20:00 Room Air 21 11/17/18 20:00 96 Room Air 21 11/17/18 16:00 98.4 92 21 129/64 (85) 97 Intake and Output 11/17/18 11/18/18 19:00 07:00 Intake Total 810 ml Balance 810 ml IV Total 810 ml # Voids 3 2 Laboratory Tests 11/18/18 06:55: White Blood Count 5.3, Red Blood Count 3.70L, Hemoglobin 11.3L, Hematocrit 35.3L , Mean Corpuscular Volume 96, Mean Corpuscular Hemoglobin 30.5, Mean Corpuscular Hemoglobin Concent 32.0, Red Cell Distribution Width 13.3, Platelet Count 272, Mean Platelet Volume 5.0L, Neutrophils (%) (Auto) , Lymphocytes (%) ( Auto) , Monocytes (%) (Auto) , Eosinophils (%) (Auto) , Basophils (%) (Auto) , Differential Total Cells Counted 100, Neutrophils % (Manual) 83H, Lymphocytes % (Manual) 4L, Monocytes % (Manual) 13H, Eosinophils % (Manual) 0, Basophils % ( Manual) 0, Band Neutrophils 0, Platelet Estimate Adequate, Platelet Morphology Normal, Red Blood Cell Morphology Normal, Sodium Level 138, Potassium Level 4.4 , Chloride Level 104, Carbon Dioxide Level 31, Anion Gap 3L, Blood Urea Nitrogen 9, Creatinine 0.8, Estimat Glomerular Filtration Rate > 60, Glucose Level 94, Calcium Level 8.6, Vancomycin Level Trough 3.5L Height (Feet): 5 Height (Inches): 8.00 Weight (Pounds): 90 Braeden Meyer MD Nov 18, 2018 13:02
[2018-11-18] MEDS ORDERED: Calcium Chloride 10% 10ml carpuject IVP ONE (13:15)
[2018-11-18] MEDS ORDERED: LEVOFLOXACIN500 MG ORAL (13:20)
[2018-11-18] MEDS ORDERED: MORPHINE S10 MG/5 ML ORAL (13:21)
--- NOTE | 2018-11-18 14:21 | Pulmonology Progress Note ---
Assessment/Plan Problems: (1) Hypomagnesemia (2) Aspiration pneumonia (3) Metastatic breast cancer (4) Hypocalcemia (5) Hypokalemia Assessment/Plan d/w brother at the bed site aspiration precaution respiratory treatment K and mg supplement Aldactone to increase K pain management swallow evaluation. K better, d/c aldactone check electrolytes Subjective ROS Limited/Unobtainable: No Constitutional: Reports: no symptoms HEENT: Repors: no symptoms Allergies: Uncoded Allergies: Fish (Allergy, Unknown, 11/18/18) Per family, patient is allergic to all the fish, reaction unknown Objective Last 24 Hour Vital Signs Date Time Temp Pulse Resp B/P (MAP) Pulse Ox O2 Delivery O2 Flow Rate FiO2 11/18/18 12:00 98.7 117 18 136/68 (90) 99 11/18/18 09:00 Room Air Venturi Mask 11/18/18 08:00 99.4 112 17 137/69 (91) 97 11/18/18 06:58 105 16 Room Air 21 11/18/18 06:58 Room Air 21 11/18/18 06:58 98 Room Air 21 11/18/18 04:00 98.5 103 16 125/62 (83) 100 11/18/18 00:00 98.5 99 16 116/65 (82) 97 11/17/18 21:00 Venturi Mask 4.0 Venturi Mask 11/17/18 20:00 98 18 Room Air 21 11/17/18 20:00 98.2 95 18 126/56 (79) 97 11/17/18 20:00 Room Air 21 11/17/18 20:00 96 Room Air 21 11/17/18 16:00 98.4 92 21 129/64 (85) 97 Intake and Output 11/17/18 11/18/18 19:00 07:00 Intake Total 810 ml Balance 810 ml IV Total 810 ml # Voids 3 2 Objective General Appearance: cachectic Lines, tubes and drains: peripheral HEENT: normocephalic, atraumatic Neck: non-tender Respiratory/Chest: chest wall non-tender, normal breath sounds Breasts: no masses Cardiovascular/Chest: normal peripheral pulses Genitourinary/Rectal: normal genital exam Extremities: normal range of motion Laboratory Tests 11/18/18 06:55: White Blood Count 5.3, Red Blood Count 3.70L, Hemoglobin 11.3L, Hematocrit 35.3L , Mean Corpuscular Volume 96, Mean Corpuscular Hemoglobin 30.5, Mean Corpuscular Hemoglobin Concent 32.0, Red Cell Distribution Width 13.3, Platelet Count 272, Mean Platelet Volume 5.0L, Neutrophils (%) (Auto) , Lymphocytes (%) ( Auto) , Monocytes (%) (Auto) , Eosinophils (%) (Auto) , Basophils (%) (Auto) , Differential Total Cells Counted 100, Neutrophils % (Manual) 83H, Lymphocytes % (Manual) 4L, Monocytes % (Manual) 13H, Eosinophils % (Manual) 0, Basophils % ( Manual) 0, Band Neutrophils 0, Platelet Estimate Adequate, Platelet Morphology Normal, Red Blood Cell Morphology Normal, Sodium Level 138, Potassium Level 4.4 , Chloride Level 104, Carbon Dioxide Level 31, Anion Gap 3L, Blood Urea Nitrogen 9, Creatinine 0.8, Estimat Glomerular Filtration Rate > 60, Glucose Level 94, Calcium Level 8.6, Vancomycin Level Trough 3.5L Current Medications Medications (Trade) Dose Ordered Sig/Mark Route PRN Reason Start Time Stop Time Status Last Admin Dose Admin Acetaminophen (Tylenol) 650 mg Q4H PRN ORAL Mild Pain (Pain Scale 1-3) 11/14/18 11:30 12/14/18 11:29 Acetaminophen (Tylenol) 650 mg Q4H PRN ORAL fever 11/14/18 11:30 12/14/18 11:29 Acetaminophen (Tylenol) 650 mg Q4H PRN RECTAL Mild Pain (Pain Scale 1-3) 11/14/18 11:30 12/14/18 11:29 Acetaminophen/ Hydrocodone Bitart ([place] 5/325) 1 tab Q6H PRN ORAL For Pain 11/14/18 11:30 11/21/18 11:29 11/18/18 12:12 Albuterol/ Ipratropium (Albuterol/ Ipratropium) 3 ml Q4H PRN HHN Shortness of Breath 11/14/18 11:30 11/19/18 11:29 Bisacodyl (Dulcolax) 10 mg HSPRN PRN RECTAL Constipation 11/14/18 11:30 12/14/18 11:29 Dextrose (Dextrose 50%) 25 ml Q30M PRN IV Hypoglycemia 11/14/18 11:30 12/14/18 11:29 Dextrose (Dextrose 50%) 50 ml Q30M PRN IV Hypoglycemia 11/14/18 11:30 12/14/18 11:29 Levofloxacin 100 ml @ 100 mls/hr Q24H IVPB 11/14/18 21:00 11/21/18 20:59 11/17/18 21:29 Metronidazole 100 ml @ 100 mls/hr Q8HR IVPB 11/14/18 22:00 11/21/18 21:59 11/18/18 14:10 Morphine Sulfate (Morphine Sulfate) 4 mg Q4H PRN IVP Severe Pain (Pain Scale 7-10) 11/14/18 11:30 11/21/18 11:29 11/17/18 18:40 Ondansetron HCl (Zofran) 4 mg Q6H PRN IVP Nausea & Vomiting 11/14/18 11:30 12/14/18 11:29 Polyethylene Glycol (Miralax) 17 gm DAILYPRN PRN ORAL Constipation 11/16/18 12:30 12/14/18 11:29 11/16/18 12:46 Potassium Chloride 40 meq/ Sodium Chloride 1,020 ml @ 75 mls/hr [id number] IV 11/15/18 12:00 12/15/18 11:59 11/18/18 08:13 Vancomycin HCl (Vanco rx to dose) 1 ea DAILY PRN MISC Per rx protocol 11/16/18 18:15 12/16/18 18:14 Vancomycin HCl 1 gm/Dextrose 275 ml @ 183.708 mls/hr Q12H IVPB 11/18/18 09:00 11/23/18 08:59 11/18/18 09:44 Piyush Briscoe MD Nov 18, 2018 14:21
--- NOTE | 2018-11-18 15:26 | Internal Med Progress Note ---
Subjective Date of Service: Nov 18, 2018 Physician Name Jose Myers Attending Physician Allan Sidhu MD Current Medications Medications (Trade) Dose Ordered Sig/Mark Route PRN Reason Start Time Stop Time Status Last Admin Dose Admin Acetaminophen (Tylenol) 650 mg Q4H PRN ORAL Mild Pain (Pain Scale 1-3) 11/14/18 11:30 12/14/18 11:29 Acetaminophen (Tylenol) 650 mg Q4H PRN ORAL fever 11/14/18 11:30 12/14/18 11:29 Acetaminophen (Tylenol) 650 mg Q4H PRN RECTAL Mild Pain (Pain Scale 1-3) 11/14/18 11:30 12/14/18 11:29 Acetaminophen/ Hydrocodone Bitart ([place] 5/325) 1 tab Q6H PRN ORAL For Pain 11/14/18 11:30 11/21/18 11:29 11/18/18 12:12 Albuterol/ Ipratropium (Albuterol/ Ipratropium) 3 ml Q4H PRN HHN Shortness of Breath 11/14/18 11:30 11/19/18 11:29 Bisacodyl (Dulcolax) 10 mg HSPRN PRN RECTAL Constipation 11/14/18 11:30 12/14/18 11:29 Dextrose (Dextrose 50%) 25 ml Q30M PRN IV Hypoglycemia 11/14/18 11:30 12/14/18 11:29 Dextrose (Dextrose 50%) 50 ml Q30M PRN IV Hypoglycemia 11/14/18 11:30 12/14/18 11:29 Levofloxacin 100 ml @ 100 mls/hr Q24H IVPB 11/14/18 21:00 11/21/18 20:59 11/17/18 21:29 Metronidazole 100 ml @ 100 mls/hr Q8HR IVPB 11/14/18 22:00 11/21/18 21:59 11/18/18 14:10 Morphine Sulfate (Morphine Sulfate) 4 mg Q4H PRN IVP Severe Pain (Pain Scale 7-10) 11/14/18 11:30 11/21/18 11:29 11/17/18 18:40 Ondansetron HCl (Zofran) 4 mg Q6H PRN IVP Nausea & Vomiting 11/14/18 11:30 12/14/18 11:29 Polyethylene Glycol (Miralax) 17 gm DAILYPRN PRN ORAL Constipation 11/16/18 12:30 12/14/18 11:29 11/16/18 12:46 Potassium Chloride 40 meq/ Sodium Chloride 1,020 ml @ 75 mls/hr [id number] IV 11/15/18 12:00 12/15/18 11:59 11/18/18 08:13 Vancomycin HCl (Vanco rx to dose) 1 ea DAILY PRN MISC Per rx protocol 11/16/18 18:15 12/16/18 18:14 Vancomycin HCl 1 gm/Dextrose 275 ml @ 183.708 mls/hr Q12H IVPB 11/18/18 09:00 11/23/18 08:59 11/18/18 09:44 Allergies: Uncoded Allergies: Fish (Allergy, Unknown, 11/18/18) Per family, patient is allergic to all the fish, reaction unknown ROS Limited/Unobtainable: Yes Subjective 58 YO F admitted with shortness of breath. Now pneumonia and sepsis. Cover for Int Med-dr Sidhu Objective Last Vital Signs Date Time Temp Pulse Resp B/P (MAP) Pulse Ox O2 Delivery O2 Flow Rate FiO2 11/18/18 12:00 98.7 117 18 136/68 (90) 99 11/18/18 09:00 Room Air Venturi Mask 11/18/18 06:58 21 11/17/18 21:00 4.0 Laboratory Tests Test 11/18/18 06:55 White Blood Count 5.3 K/UL (4.8-10.8) Red Blood Count 3.70 M/UL (4.20-5.40) L Hemoglobin 11.3 G/DL (12.0-16.0) L Hematocrit 35.3 % (37.0-47.0) L Mean Corpuscular Volume 96 FL (80-99) Mean Corpuscular Hemoglobin 30.5 PG (27.0-31.0) Mean Corpuscular Hemoglobin Concent 32.0 G/DL (32.0-36.0) Red Cell Distribution Width 13.3 % (11.6-14.8) Platelet Count 272 K/UL (150-450) Mean Platelet Volume 5.0 FL (6.5-10.1) L Neutrophils (%) (Auto) % (45.0-75.0) Lymphocytes (%) (Auto) % (20.0-45.0) Monocytes (%) (Auto) % (1.0-10.0) Eosinophils (%) (Auto) % (0.0-3.0) Basophils (%) (Auto) % (0.0-2.0) Differential Total Cells Counted 100 Neutrophils % (Manual) 83 % (45-75) H Lymphocytes % (Manual) 4 % (20-45) L Monocytes % (Manual) 13 % (1-10) H Eosinophils % (Manual) 0 % (0-3) Basophils % (Manual) 0 % (0-2) Band Neutrophils 0 % (0-8) Platelet Estimate Adequate Platelet Morphology Normal Red Blood Cell Morphology Normal Sodium Level 138 MMOL/L (136-145) Potassium Level 4.4 MMOL/L (3.5-5.1) Chloride Level 104 MMOL/L (98-107) Carbon Dioxide Level 31 MMOL/L (21-32) Anion Gap 3 mmol/L (5-15) L Blood Urea Nitrogen 9 mg/dL (7-18) Creatinine 0.8 MG/DL (0.55-1.30) Estimat Glomerular Filtration Rate > 60 mL/min (>60) Glucose Level 94 MG/DL (74-106) Calcium Level 8.6 MG/DL (8.5-10.1) Vancomycin Level Trough 3.5 ug/mL (5.0-12.0) L Intake and Output 11/17/18 11/18/18 19:00 07:00 Intake Total 810 ml Balance 810 ml IV Total 810 ml # Voids 3 2 Objective PHYSICAL EXAMINATION: GENERAL: The patient is awake, responsive, in no acute distress. HEAD AND NECK: Pupils equal and reactive to light. Anicteric. NECK: Supple. No JVD. LUNGS: Decreased air movement right. Occasional crackles bilaterally. HEART: S1, S2. Distant heart sounds. CHEST WALL: A keloid on the chest wall was noted mostly over the right side of chest wall and midline. ABDOMEN: Soft, mildly distended. No rebound tenderness. No fluid shift. EXTREMITIES: No cyanosis, clubbing, or edema. NEUROLOGIC: Cranial nerves II through XII are grossly intact. The patient moving all extremities spontaneously. Gait was not assessed due to the patient's status. Assessment/Plan Assessment/Plan ASSESSMENT: 1. Acute respiratory distress/failure 2. aspiration pneumonia. 2. Acute kidney injury with dehydration. 3. Advanced right breast cancer with metastasis. 4. Hypertension. 5. Hypomagnesemia. 6. Hypokalemia. 7. Severe protein-calorie malnutrition. 8. Sepsis-Staph haemolyiticus PLAN: After further discussion with the family member, the patient's code status is DNR/DNI, comfort care. The patient would go back to the hospice -[facility] hospice notified Continue Levaquin and Flagyl, IV hydration with D5 half-NS plus potassium. supplement magnesium as well as potassium. Discussed the case with Dr. Briscoe of Pulmonary/Critical Care and the patient will be discharged home on hospice. D/W brother and sister. Currently 24 hour cargivers at home. Request discharge home with [facility] continue antibiotics per ID; await repeat blood cultures. Jose Myers MD Nov 18, 2018 15:26
[2018-11-18 16:00] VITALS: BP 128/67
--- NOTE | 2018-11-18 16:12 | NUR ---
NURSE NOTES: Patient was discharged to home with [facility] in stable condition. discharge instruction given to the patient's sister Kathy Saldana including aspiration precaution, diet and liquid, when to seek medical attention. RN spoke to Hospice staff [place]. Hospice will provide meds and transportation. No s/s of infection on IV site. Skin assessment done. Skin intact. Prescription given to the family. [place] [place] instruction given to patient's sister. Patient has no belongings. V/S stable, denies pain or discomfort. Patient was picked up by the ambulance personnel.
--- NOTE | 2018-11-20 11:00 | Discharge Summary ---
Discharge Summary Discharge Summary _ DATE OF ADMISSION: 11/13/2018 DATE OF DISCHARGE: 11/18/2018 DISCHARGED BY: Y: REASON FOR ADMISSION: 58 years old female with past medical history of advanced stage IV metastatic right breast cancer, status post chemotherapy and radiation therapy, presently on hospice with DNR/DNI status, hypertension, borderline diabetes, mitral valve prolapse, vision deficit , blindness, presented from home with severe shortness of breath. Apparently while eating applesauce, she suddenly started to have respiratory distress and difficulty swallowing. She denied any respiratory distress until this episode. Last few day she experienced increased pain. Pain was controlled with tramadol. All her pills were crushed, and patient tolerated oral intake marginally well. Patient also reported constipation. While assembler metal building arrived , patient was in acute respiratory distress. Patient started on CPAP in the field. Albuterol was provided. Patient continued to be in respiratory distress. Upon evaluation in emergency room patient was tachycardic with heart rate 140 , patient was on CPAP. Chest x-ray showed multiplied calcified granuloma in the right lung and right pulmonary hilum. Laboratory workup revealed no leukocytosis, WBC 6.2 hemoglobin 12.1 , hematocrit 28.5 ,platelets 237 . Potassium 2.0, sodium 149, BUN 7, creatinine 0.5, lactic acid 4.7, magnesium 0.9 ,calcium less than 5. Troponin - 0.005 , pro BNP 58. EKG revealed sinus tachycardia, but no acute ischemic changes. Albumin 1.3 CONSULTANTS: pulmonary Dr. Briscoe ID specialist Dr. Dee psychiatrist [facility] COURSE: Patient admitted to medical surgical floor. Further goals of care were discussed with family member, who confirmed patient being DNR/DNI status with focus on comfort care. Patient started on broad-spectrum antibiotics . ID consult was requested. Patient started on IV hydration . All electrolytes were corrected. Supplemental oxygen provided initially via BiPAP to keep pulse oximetry above 92 %. Patient was able to be weaned to Venturi mask and then to the room air with intermittent use of Venturi mask. Blood culture initially showed Staphylococcus hemolyticus . Influenza screen test was negative . Repeated blood cultures were negative. Per infectious disease specialist, hemolyticus bacteremia was likely contaminant, since repeatrf blood cultures were negative. Patient remained afebrile no leukocytosis. Patient completed 6 days of treatment with Levaquin and Flagyl, and empiric vancomycin was given until repeated blood culture came back negative. Infectious disease doctor recommended to observe off antibiotic , continue aspiration precaution and monitor clinically. Bedside swallow evaluation revealed evidence of dysphagia. Diet provided as per speech therapist recommendation for quality of life with strict aspiration/ reflux precaution. Linderman Operator recommendation implemented in plan of care to improve nutritional status. Patient stabilized. Pulse oximetry was stable on room air with intermittent Venturi mask use; no leukocytosis , no fevers. Electrolytes corrected : potassium 4.4, sodium 138, magnesium 1.8, calcium 8.6 . Patient remained afebrile. Pain controlled. Bowel regimen instituted. Patient was stable for discharge home to continue with hospice services, FINAL DIAGNOSES: Acute respiratory distress/failure most likely due to aspiration Probable aspiration pneumonia Lactic acidosis Severe dehydration with multiple electrolyte abnormalities Advanced stage IV metastatic right breast cancer Electrolyte abnormalities : hypomagnesemia , hypokalemia, hypernatremia, hypocalcemia -resolved Dysphagia Hypertension Severe protein calorie malnutrition Blindness Asthma DISCHARGE MEDICATIONS: See Medication Reconciliation list. DISCHARGE INSTRUCTIONS: Patient was discharged home with hospice services I have been assigned to dictate discharge summary for this account. I was not involved in the patient's management. Ema Pierre NP Nov 20, 2018 11:00
== END 2018-11-18 16:00 | disposition home or self-care (01) | DRG 177 ==
LOC: EDBD 20:59 → EMR 21:05 → 4E 22:02 → EDBEDREQ 11-14 11:24 → EDBEDREQSVC 11-14 11:24 → EDBEDREQ 11-14 13:56 → 4E 11-14 14:25
DX: J69.0 Pneumonitis due to inhalation of food and vomit (principal); J96.00 Acute respiratory failure, unspecified whether with hypoxia or hypercapnia; E43 Unspecified severe protein-calorie malnutrition; Z68.1 Body mass index [BMI] 19.9 or less, adult; N17.9 Acute kidney failure, unspecified; C79.9 Secondary malignant neoplasm of unspecified site; E87.0 Hyperosmolality and hypernatremia; Z51.5 Encounter for palliative care; Z66 Do not resuscitate; C50.911 Malignant neoplasm of unspecified site of right female breast; E87.6 Hypokalemia; E86.0 Dehydration; I10 Essential (primary) hypertension; E83.42 Hypomagnesemia; Z92.3 Personal history of irradiation; E83.51 Hypocalcemia; Z86.73 Personal history of transient ischemic attack (TIA), and cerebral infarction without residual deficits; H54.7 Unspecified visual loss; J45.909 Unspecified asthma, uncomplicated
CPT/HCPCS: 36415; 71045; 80048; 80053; 80202; 82550; 83605; 83735; 83880; 84100; 84484; 85007; 85025; 85610; 85651; 85730; 86140; 86710; 87040; 87181; 93005; 94664; 94760; 96361; 96365; 96368; 96375; 99291; 99292; J2405